=== PATIENT | male | born 1950 | race Caucasian/White ===

== ENCOUNTER 2016-11-29 11:59 | Inpatient (IN) | payer MEDICARE, MEDICAID ==
[~2016-11-29] VITALS: Ht 165.1 cm; Wt 118.7 kg
[~2016-11-29 11:59] MED LIST: ALBU8.5H3 INH; ALBU8.5H5 INH; AMIO200T PO; AMIO200T42 PO; AMLO10TA4 PO; ASPI-496 PO; ASPI-515 PO; ASPI-621 PO; ATOR20TA9 PO; BISA10SU65 PR; CALC0.25 PO; CALC200T3 PO; CALC667C PO; CARV-39 PO; CARV3.122 PO; CARV6.2512 PO; CEFD300C2 PO; CLON0.2T PO; CLON0.2T10 PO; CLOP75TA PO; CLOP75TA22 PO; DOCU-30 PO; DOXY-168 PO; ERGO500017 PO; ERGO80004 PO; FAMO-79 PO; FAMO20TA7 PO; FLUT1DIS3 INH; FLUT1DIS5 IH; FURO-93 PO; FURO80TA77 PO; GABA300C10 PO; GEMF600T3 PO; GLIP5TAB10 PO; HYDR100T25 PO; INSU100C; INSU100C5 SQ-INSULIN; INSU100I11 SC; INSU100I28 SC; INSU100I28 SQ-INSULIN; INSU100I29 SQ; INSU100I29 SQ-INSULIN; INSU100I9 SQ-INSULIN; INSU100V13 SC; INSU100V5 SQ-INSULIN; IRON1TAB60 PO; ISOS20TA58 PO; ISOS30TA PO; LEVE500T53 PO; LISI5TAB7 PO; LORA-446 PO; LORA1TAB PO; LOSA100T6 PO; METF500T PO; OXYC-229 PO; PANT40TA5 PO; PHEN50TA4 PO; POLY17PO5 PO; PREG100C PO; SENN1TAB7 PO; SIMV20TA3 PO; SULF1TAB24 PO; TIOT18CA INH; VITA1CAP PO; ZOLP-413 PO; ZOLP10TA; ZOLP10TA5 PO; cholesterol med; levemir SQ
[2016-11-29] MEDS ORDERED: MECLIZINE CHEWABLE 25 MG TAB ONE (12:28)
[2016-11-29] MEDS ORDERED: SODIUM CHLORIDE FLUSH 10ML SYR IVF ONE (12:30)
[2016-11-29] MEDS ORDERED: MECLIZINE CHEWABLE 25 MG TAB PO ONE (12:30)
[2016-11-29] MEDS ORDERED: GLIP5TAB22 PO (12:33)
[2016-11-29] MEDS ORDERED: FURO20TA3 PO (12:33)
[2016-11-29] MEDS ORDERED: CLON-275 PO (12:33)
[2016-11-29] MEDS ORDERED: ZOLP12.54 PO (12:33)
[2016-11-29] MEDS ORDERED: PANT40TA5 PO (12:33)
[2016-11-29] MEDS ORDERED: INSU100C SQ-INSULIN (12:33)
[2016-11-29] MEDS ORDERED: PREG150C PO (12:33)
[2016-11-29] MEDS ORDERED: ATOR80TA75 PO (12:33)
[2016-11-29] MEDS ORDERED: LORA1TAB PO (12:33)
[2016-11-29] MEDS ORDERED: ISOS20TA58 PO (12:33)
[2016-11-29] MEDS ORDERED: INSU100V13 SQ (12:33)
[2016-11-29] MEDS ORDERED: CARV12.52 PO (12:33)
[2016-11-29 12:40] LABS: HEMOGLOBIN 10.7 g/dL (13.7-18.0)
[2016-11-29 12:47] LABS: ASPARTATE AMINO TRANSFERASE 8 U/L (15-37); BLOOD UREA NITROGEN 53 mg/dL (7-18)
[2016-11-29 12:58] LABS: IS PT STATUS REG ER OR PRE ER? YES
[2016-11-29 14:35] VITALS: BP 156/61
[2016-11-29] MEDS ORDERED: ONDANSETRON 2MG/ML, 2ML IVP PRN (15:00)
[2016-11-29] MEDS ORDERED: LABETALOL 5MG/ML, 20ML IV PRN (15:00)
[2016-11-29] MEDS ORDERED: ACETAMINOPHEN 325 MG TABLET PO PRN (15:00)
[2016-11-29] MEDS ORDERED: MORPHINE SULFATE 4 MG/ML, 1ML IVPush PRN (15:00)
[2016-11-29] MEDS ORDERED: DOCUSATE 100 MG CAPSULE PO PRN (15:00)
[2016-11-29] MEDS ORDERED: POLYETHYLENE GLYCOL 17 GM PACKET PO PRN (15:00)
[2016-11-29] MEDS ORDERED: BISACODYL 10 MG SUPP PR PRN (15:00)
[2016-11-29 15:32] LABS: IS PT STATUS REG ER OR PRE ER? YES
[2016-11-29] MEDS ORDERED: CEFTRIAXONE PMX 1GM/50ML 50 ML ONE (15:33)
[2016-11-29] MEDS: CEFTRIAXONE PMX 1GM/50ML 50 ML IV SCH (15:37)
[2016-11-29] MEDS ORDERED: ALBUTEROL SULFATE 2.5 MG/3 ML NPPB PRN (17:30)
[2016-11-29] MEDS: HEPARIN 5,000 UNITS/ML, 1ML SQ SCH (18:08)
[2016-11-29] MEDS: DOXYCYCLINE 100 MG in DEXTROSE 5% 250 ML IV SCH (18:08)
[2016-11-29] MEDS: INSULIN REGULAR 100 UNITS/ML, 3ML VIAL SQ-INSULIN SCH ×2 (18:15→23:02)
[2016-11-29] MEDS: ISOSORBIDE DINITRATE 20 MG TABLET PO SCH (18:16)
[2016-11-29 21:30] VITALS: BP 174/66
[2016-11-29] MEDS: GUAIFENESIN ER 600 MG TABLET PO SCH (21:40)
[2016-11-29] MEDS: FUROSEMIDE 20 MG TABLET PO SCH (21:41)
[2016-11-29] MEDS: SODIUM CHLORIDE FLUSH 10ML SYR IVF SCH (21:41)
[2016-11-29] MEDS: ATORVASTATIN 80 MG TABLET PO SCH (21:42)
[2016-11-29] MEDS: CALCIUM CARBONATE 500 MG TAB.CHEW PO SCH (21:42)
[2016-11-29 21:46] LABS: IS PT STATUS REG ER OR PRE ER? NO
[2016-11-29] MEDS: INSULIN DETEMIR 100 UNITS/ML, PEN SQ-INSULIN SCH (23:01)
[2016-11-30] MEDS: ISOSORBIDE DINITRATE 20 MG TABLET PO SCH ×5 (00:28→21:00)
[2016-11-30] MEDS ORDERED: ZOLPIDEM 10MG TABLET PO SCH ×2 (01:00→09:00)
[2016-11-30] MEDS: ZOLPIDEM 5MG TABLET PO SCH ×2 (01:23→21:00)
[2016-11-30] MEDS: HEPARIN 5,000 UNITS/ML, 1ML SQ SCH ×3 (01:26→20:59)
[2016-11-30 02:07] VITALS: BP 162/72
[2016-11-30 04:58] LABS: HEMOGLOBIN 10.1 g/dL (13.7-18.0)
[2016-11-30 05:05] LABS: BLOOD UREA NITROGEN 67 mg/dL (7-18)
[2016-11-30] MEDS: DOXYCYCLINE 100 MG in DEXTROSE 5% 250 ML IV SCH (05:22)
[2016-11-30 06:24] LABS: ABG COLLECTION SITE RIGHT BRACHIAL
[2016-11-30 06:25] LABS: COLLATERAL CIRCULATION TESTING NORMAL
[2016-11-30 08:54] VITALS: BP 128/68
[2016-11-30] MEDS: PREGABALIN 150 MG CAPSULE PO SCH (09:24)
[2016-11-30] MEDS: INSULIN DETEMIR 100 UNITS/ML, PEN SQ-INSULIN SCH ×2 (09:24→21:02)
[2016-11-30] MEDS: CARVEDILOL 12.5 MG TABLET PO SCH (09:25)
[2016-11-30] MEDS: SODIUM CHLORIDE FLUSH 10ML SYR IVF SCH (09:25)
[2016-11-30] MEDS: FUROSEMIDE 20 MG TABLET PO SCH ×2 (09:25→21:01)
[2016-11-30] MEDS: INSULIN REGULAR 100 UNITS/ML, 3ML VIAL SQ-INSULIN SCH ×4 (09:25→21:00)
[2016-11-30] MEDS: CALCIUM CARBONATE 500 MG TAB.CHEW PO SCH ×2 (09:25→21:00)
[2016-11-30] MEDS: GUAIFENESIN ER 600 MG TABLET PO SCH ×2 (09:25→20:59)
[2016-11-30] MEDS: LORazepam 1MG TABLET PO SCH (09:25)
[2016-11-30] MEDS: ASPIRIN 81 MG TABLET EC PO SCH (09:25)
[2016-11-30] MEDS: ALBUTEROL/IPRATROPIUM 2.5MG/0.5MG, 3 ML NPPB SCH ×3 (11:00→20:00)
[2016-11-30 13:10] VITALS: BP 158/72
[2016-11-30 20:28] VITALS: BP 138/64
[2016-11-30] MEDS: ATORVASTATIN 80 MG TABLET PO SCH (21:01)
[2016-12-01] MEDS: CEFTRIAXONE PMX 1GM/50ML 50 ML IV SCH (00:36)
[2016-12-01] MEDS: SODIUM CHLORIDE FLUSH 10ML SYR IVF SCH ×3 (00:36→20:27)
[2016-12-01] MEDS: methylPREDNISolone SOD SUCC 125 MG/2 ML IVPush SCH ×2 (00:36→08:11)
[2016-12-01] MEDS: DOXYCYCLINE 100 MG in DEXTROSE 5% 250 ML IV SCH ×3 (01:39→20:27)
[2016-12-01 01:46] VITALS: BP 144/67
[2016-12-01] MEDS: ISOSORBIDE DINITRATE 20 MG TABLET PO SCH ×4 (05:02→20:53)
[2016-12-01] MEDS: HEPARIN 5,000 UNITS/ML, 1ML SQ SCH ×3 (05:02→20:55)
[2016-12-01 05:41] LABS: BLOOD UREA NITROGEN 48 mg/dL (7-18)
[2016-12-01] MEDS: INSULIN REGULAR 100 UNITS/ML, 3ML VIAL SQ-INSULIN SCH ×4 (07:37→20:55)
[2016-12-01] MEDS: ALBUTEROL/IPRATROPIUM 2.5MG/0.5MG, 3 ML NPPB SCH ×4 (08:00→20:21)
[2016-12-01] MEDS: LORazepam 1MG TABLET PO SCH (08:11)
[2016-12-01 08:15] VITALS: BP 148/69
[2016-12-01] MEDS: CALCIUM CARBONATE 500 MG TAB.CHEW PO SCH ×2 (08:24→20:53)
[2016-12-01] MEDS: FUROSEMIDE 20 MG TABLET PO SCH ×2 (08:24→20:53)
[2016-12-01] MEDS: CARVEDILOL 12.5 MG TABLET PO SCH (08:24)
[2016-12-01] MEDS: GUAIFENESIN ER 600 MG TABLET PO SCH ×2 (08:24→20:53)
[2016-12-01] MEDS: PREGABALIN 150 MG CAPSULE PO SCH (08:24)
[2016-12-01] MEDS: ASPIRIN 81 MG TABLET EC PO SCH (08:24)
[2016-12-01] MEDS: INSULIN DETEMIR 100 UNITS/ML, PEN SQ-INSULIN SCH ×2 (08:27→20:54)
[2016-12-01 12:24] LABS: RAPID INFLUENZA A Negative (Negative); RAPID INFLUENZA B Negative (Negative)
[2016-12-01 12:36] VITALS: BP 131/75
[2016-12-01 20:00] VITALS: BP 144/69
[2016-12-01] MEDS: ATORVASTATIN 80 MG TABLET PO SCH (20:53)
[2016-12-02] MEDS: CEFTRIAXONE PMX 1GM/50ML 50 ML IV SCH (00:27)
[2016-12-02 01:40] VITALS: BP 155/70
[2016-12-02] MEDS: HYDROcodone/APAP 5/325 TABLET PO PRN ×2 (05:37→21:19)
[2016-12-02] MEDS: HEPARIN 5,000 UNITS/ML, 1ML SQ SCH ×3 (05:37→21:06)
[2016-12-02] MEDS: ISOSORBIDE DINITRATE 20 MG TABLET PO SCH ×4 (05:40→21:08)
[2016-12-02 06:28] LABS: HEMOGLOBIN 10.3 g/dL (13.7-18.0)
[2016-12-02 06:42] LABS: BLOOD UREA NITROGEN 84 mg/dL (7-18)
[2016-12-02] MEDS: ALBUTEROL/IPRATROPIUM 2.5MG/0.5MG, 3 ML NPPB SCH ×4 (06:50→20:40)
[2016-12-02 08:00] VITALS: BP 189/82
[2016-12-02] MEDS: GUAIFENESIN ER 600 MG TABLET PO SCH ×2 (08:40→21:05)
[2016-12-02] MEDS: CALCIUM CARBONATE 500 MG TAB.CHEW PO SCH ×2 (08:41→21:06)
[2016-12-02] MEDS: LORazepam 1MG TABLET PO SCH (08:41)
[2016-12-02] MEDS: INSULIN DETEMIR 100 UNITS/ML, PEN SQ-INSULIN SCH ×2 (08:41→21:07)
[2016-12-02] MEDS: SODIUM CHLORIDE FLUSH 10ML SYR IVF SCH ×2 (08:42→21:12)
[2016-12-02] MEDS: INSULIN REGULAR 100 UNITS/ML, 3ML VIAL SQ-INSULIN SCH ×4 (08:42→21:07)
[2016-12-02 14:00] VITALS: BP 177/81
[2016-12-02] MEDS: DOXYCYCLINE 100 MG in DEXTROSE 5% 250 ML IV SCH (14:13)
[2016-12-02] MEDS: FUROSEMIDE 20 MG TABLET PO SCH ×2 (14:16→21:06)
[2016-12-02] MEDS: PREGABALIN 150 MG CAPSULE PO SCH (14:16)
[2016-12-02] MEDS: ASPIRIN 81 MG TABLET EC PO SCH (14:17)
[2016-12-02] MEDS: CARVEDILOL 12.5 MG TABLET PO SCH (14:17)
[2016-12-02 19:23] VITALS: BP 162/77
[2016-12-02] MEDS: ATORVASTATIN 80 MG TABLET PO SCH (21:06)
[2016-12-03] MEDS: CEFTRIAXONE PMX 1GM/50ML 50 ML IV SCH (00:20)
[2016-12-03 02:04] VITALS: BP 163/70
[2016-12-03] MEDS: DOXYCYCLINE 100 MG in DEXTROSE 5% 250 ML IV SCH (02:13)
[2016-12-03] MEDS: HEPARIN 5,000 UNITS/ML, 1ML SQ SCH (05:19)
[2016-12-03] MEDS: ISOSORBIDE DINITRATE 20 MG TABLET PO SCH ×2 (05:20→10:29)
[2016-12-03] MEDS: ALBUTEROL/IPRATROPIUM 2.5MG/0.5MG, 3 ML NPPB SCH ×2 (06:52→10:32)
[2016-12-03 07:27] VITALS: BP 158/67
[2016-12-03] MEDS: CALCIUM CARBONATE 500 MG TAB.CHEW PO SCH (08:56)
[2016-12-03] MEDS: GUAIFENESIN ER 600 MG TABLET PO SCH (08:57)
[2016-12-03] MEDS: ASPIRIN 81 MG TABLET EC PO SCH (08:57)
[2016-12-03] MEDS: FUROSEMIDE 20 MG TABLET PO SCH (08:57)
[2016-12-03] MEDS: CARVEDILOL 12.5 MG TABLET PO SCH (08:57)
[2016-12-03] MEDS: PREGABALIN 150 MG CAPSULE PO SCH (08:57)
[2016-12-03] MEDS: INSULIN DETEMIR 100 UNITS/ML, PEN SQ-INSULIN SCH (08:57)
[2016-12-03] MEDS: SODIUM CHLORIDE FLUSH 10ML SYR IVF SCH (08:58)
[2016-12-03] MEDS: LORazepam 1MG TABLET PO SCH (08:58)
[2016-12-03] MEDS: INSULIN REGULAR 100 UNITS/ML, 3ML VIAL SQ-INSULIN SCH ×2 (08:58→12:19)
[2016-12-03] MEDS ORDERED: GUAI600T22 PO (10:53)
[2016-12-03] MEDS ORDERED: PRED20TA PO (10:53)
[2016-12-03] MEDS ORDERED: DOXY100T PO (10:53)
[2016-12-03] MEDS ORDERED: CEFD300C2 PO (10:53)
== END 2016-12-03 13:49 | disposition home health service (06) | DRG 871 ==
LOC: MERGE 11:59 → ED 14:57 → EDIP 15:00 → OBSVTOIN 15:00 → 4EST 16:24 → DCLOUNGE 12-03 12:50
PROVIDERS: ADMIT Internal Medicine; ATTEND Family Medicine
PROC: 5A1D60Z (ICD-10-PCS; principal; 2016-12-02)
DX: A41.9 Sepsis, unspecified organism (principal); N18.6 End stage renal disease; J44.0 Chronic obstructive pulmonary disease with (acute) lower respiratory infection; I13.2 Hypertensive heart and chronic kidney disease with heart failure and with stage 5 chronic kidney disease, or end stage renal disease; I50.32 Chronic diastolic (congestive) heart failure; E87.1 Hypo-osmolality and hyponatremia; J44.1 Chronic obstructive pulmonary disease with (acute) exacerbation; J20.9 Acute bronchitis, unspecified; E78.5 Hyperlipidemia, unspecified; I25.10 Atherosclerotic heart disease of native coronary artery without angina pectoris; E11.22 Type 2 diabetes mellitus with diabetic chronic kidney disease; E11.21 Type 2 diabetes mellitus with diabetic nephropathy; E11.65 Type 2 diabetes mellitus with hyperglycemia; F17.200 Nicotine dependence, unspecified, uncomplicated; D64.9 Anemia, unspecified; D63.1 Anemia in chronic kidney disease; Z99.2 Dependence on renal dialysis; Z95.5 Presence of coronary angioplasty implant and graft; Z90.49 Acquired absence of other specified parts of digestive tract; Z83.3 Family history of diabetes mellitus; Z86.718 Personal history of other venous thrombosis and embolism; Z82.3 Family history of stroke; Z82.5 Family history of asthma and other chronic lower respiratory diseases; Z79.4 Long term (current) use of insulin; Z86.73 Personal history of transient ischemic attack (TIA), and cerebral infarction without residual deficits
CPT/HCPCS: 36415; 36600; 70450; 71010; 80048; 80053; 80061; 82140; 82803; 82962; 83605; 84484; 85025; 85610; 85730; 87040; 87400; 93005; 93306; 94640; 96365; J0696; J1644; J1815; J7060; J7620; J2930; J7512

== ENCOUNTER 2017-01-22 14:30 | Observation (INO) | payer MEDICARE, MEDICAID ==
[~2017-01-22] VITALS: Ht 165.1 cm; Wt 112.2 kg
[~2017-01-22 14:30] MED LIST changes: +ATOR80TA75 PO; +CARV12.52 PO; -CEFD300C2 PO; +CEFD300C37 PO; +CLON-275 PO; +DOXY100T PO; +FURO20TA3 PO; +GLIP5TAB22 PO; +GUAI600T22 PO; +INSU100C SQ-INSULIN; +INSU100V13 SQ; +PRED20TA PO; +PREG150C PO; +ZOLP12.54 PO
[2017-01-22 15:48] LABS: BLOOD UREA NITROGEN 62 mg/dL (7-18)
[2017-01-22 15:55] LABS: ASPARTATE AMINO TRANSFERASE 16 U/L (15-37)
[2017-01-22 15:58] LABS: IS PT STATUS REG ER OR PRE ER? YES
[2017-01-22] MEDS ORDERED: CEFTRIAXONE PMX 1GM/50ML 50 ML IVPB ONE (17:00)
[2017-01-22] MEDS ORDERED: LORazepam 1MG TABLET PO PRN (17:30)
[2017-01-22] MEDS ORDERED: MORPHINE SULFATE 4 MG/ML, 1ML IVPush PRN (17:30)
[2017-01-22] MEDS ORDERED: ACETAMINOPHEN 325 MG TABLET PO PRN (17:30)
[2017-01-22] MEDS ORDERED: ONDANSETRON 2MG/ML, 2ML IVP PRN (17:30)
[2017-01-22] MEDS ORDERED: POLYETHYLENE GLYCOL 17 GM PACKET PO PRN (17:30)
[2017-01-22] MEDS ORDERED: OXYcodone/APAP 10/325MG TABLET PO SCH (17:30)
[2017-01-22] MEDS ORDERED: DOCUSATE 100 MG CAPSULE PO PRN (17:30)
[2017-01-22] MEDS ORDERED: BISACODYL 10 MG SUPP PR PRN (17:30)
[2017-01-22] MEDS ORDERED: LABETALOL 5MG/ML, 20ML IV PRN (17:30)
[2017-01-22] MEDS: CLONIDINE MC SCH (18:00)
[2017-01-22 18:37] VITALS: BP 150/69
[2017-01-22] MEDS ORDERED: ATORVASTATIN 80 MG TABLET PO SCH (21:00)
[2017-01-22] MEDS: SODIUM CHLORIDE FLUSH 10ML SYR IVF SCH (21:16)
[2017-01-22] MEDS: HEPARIN 5,000 UNITS/ML, 1ML SQ SCH (21:16)
[2017-01-22] MEDS: GUAIFENESIN ER 600 MG TABLET PO SCH (21:17)
[2017-01-22] MEDS: CALCIUM CARBONATE 500 MG TAB.CHEW PO SCH (21:17)
[2017-01-22] MEDS: PREGABALIN 100 MG CAPSULE PO SCH (21:17)
[2017-01-22] MEDS: INSULIN DETEMIR 100 UNITS/ML, PEN SQ-INSULIN SCH (21:40)
[2017-01-22] MEDS: INSULIN REGULAR 100 UNITS/ML, 3ML VIAL SQ-INSULIN SCH (21:40)
[2017-01-22] MEDS: AZITHROMYCIN 500 MG in SODIUM CHLORIDE 0.9% 250 ML IV SCH (22:45)
[2017-01-22 22:50] VITALS: BP 150/69
[2017-01-22] MEDS ORDERED: OXYcodone/APAP 10/325MG TABLET PO PRN (23:30)
[2017-01-23] MEDS: CLONIDINE MC SCH ×3 (02:00→17:02)
[2017-01-23 03:20] VITALS: BP 148/75
[2017-01-23 06:04] LABS: BLOOD UREA NITROGEN 62 mg/dL (7-18)
[2017-01-23] MEDS: HEPARIN 5,000 UNITS/ML, 1ML SQ SCH ×2 (06:06→13:14)
[2017-01-23 06:50] VITALS: BP 141/66
[2017-01-23] MEDS: INSULIN REGULAR 100 UNITS/ML, 3ML VIAL SQ-INSULIN SCH ×3 (07:00→17:00)
[2017-01-23] MEDS: GUAIFENESIN ER 600 MG TABLET PO SCH (08:20)
[2017-01-23] MEDS: CALCIUM CARBONATE 500 MG TAB.CHEW PO SCH (08:20)
[2017-01-23] MEDS: PREGABALIN 100 MG CAPSULE PO SCH (08:20)
[2017-01-23] MEDS: SODIUM CHLORIDE FLUSH 10ML SYR IVF SCH (08:20)
[2017-01-23] MEDS: INSULIN DETEMIR 100 UNITS/ML, PEN SQ-INSULIN SCH (08:21)
[2017-01-23] MEDS ORDERED: FUROSEMIDE 20 MG TABLET PO SCH (09:00)
[2017-01-23] MEDS ORDERED: CARVEDILOL 12.5 MG TABLET PO SCH (09:00)
[2017-01-23] MEDS ORDERED: ISOSORBIDE MONONITRATE ER 30 MG TABLET PO SCH (09:00)
[2017-01-23] MEDS ORDERED: ZOLPIDEM 10MG TABLET PO SCH (09:00)
[2017-01-23] MEDS ORDERED: ASPIRIN 81 MG TABLET EC PO SCH (09:00)
[2017-01-23] MEDS ORDERED: ALBU18HF INH (13:52)
[2017-01-23] MEDS ORDERED: GUAI600T22 PO (13:52)
[2017-01-23] MEDS ORDERED: AZIT250T PO (13:55)
[2017-01-23 15:45] VITALS: BP 143/70
[2017-01-23] MEDS: AZITHROMYCIN 500 MG in SODIUM CHLORIDE 0.9% 250 ML IV SCH (17:01)
[2017-01-23 18:33] VITALS: BP 158/66
== END 2017-01-23 19:20 | disposition home or self-care (01) ==
LOC: ED 16:55 → EDIP 16:56 → INTOOBSV 16:56 → ED 17:08 → 4NOR 18:33 → UNDODISIN 01-23 19:20
PROVIDERS: ADMIT Hospitalist; ATTEND Hospitalist
DX: J20.9 Acute bronchitis, unspecified (principal); I13.2 Hypertensive heart and chronic kidney disease with heart failure and with stage 5 chronic kidney disease, or end stage renal disease; N18.6 End stage renal disease; E11.22 Type 2 diabetes mellitus with diabetic chronic kidney disease; E11.21 Type 2 diabetes mellitus with diabetic nephropathy; E11.65 Type 2 diabetes mellitus with hyperglycemia; E78.5 Hyperlipidemia, unspecified; E11.40 Type 2 diabetes mellitus with diabetic neuropathy, unspecified; D63.8 Anemia in other chronic diseases classified elsewhere; J44.1 Chronic obstructive pulmonary disease with (acute) exacerbation; I50.32 Chronic diastolic (congestive) heart failure; I25.10 Atherosclerotic heart disease of native coronary artery without angina pectoris; E44.0 Moderate protein-calorie malnutrition; Z86.73 Personal history of transient ischemic attack (TIA), and cerebral infarction without residual deficits; Z99.2 Dependence on renal dialysis; Z87.891 Personal history of nicotine dependence; Z95.5 Presence of coronary angioplasty implant and graft; Z96.641 Presence of right artificial hip joint; Z82.5 Family history of asthma and other chronic lower respiratory diseases; Z82.3 Family history of stroke; Z83.3 Family history of diabetes mellitus
CPT/HCPCS: 36415; 71020; 80048; 80053; 82962; 83605; 84145; 84484; 85025; 87040; 87070; 87205; 93005; 96365; 96367; 96372; 96375; 99285; G0378; J0456; J0696; J1644; J1815; J7050

== ENCOUNTER 2017-11-03 00:58 | Emergency (ER) | payer MEDICARE, MEDICAID ==
[~2017-11-03] VITALS: Ht 165.1 cm; Wt 116.8 kg
[~2017-11-03 00:58] MED LIST changes: +ALBU18HF INH; -ALBU8.5H3 INH; +ALBU8.5H8 INH; +ATOR-2 PO; -ATOR80TA75 PO; +AZIT250T PO; -CLOP75TA22 PO; +CLOP75TA52 PO; +DOCU-131 PO; -DOCU-30 PO; -DOXY-168 PO; +DOXY100C2 PO; +DOXY100T10 PO; +FENO48TA16 PO; +FURO40TA6 PO; +GLIP-164 PO; -GUAI600T22 PO; +GUAI600T31 PO; +INSU100I28 SQ; +INSU200I SQ; +ISOS30TA8 PO; -OXYC-229 PO; +OXYC-307 PO; +SEVE800T8 PO
[2017-11-03 01:09] VITALS: BP 211/84
== END 2017-11-03 02:04 | disposition home or self-care (01) ==
LOC: ED 01:31
DX: K04.7 Periapical abscess without sinus (principal); I10 Essential (primary) hypertension; J44.9 Chronic obstructive pulmonary disease, unspecified; E78.5 Hyperlipidemia, unspecified; E11.9 Type 2 diabetes mellitus without complications; Z90.49 Acquired absence of other specified parts of digestive tract; Z88.8 Allergy status to other drugs, medicaments and biological substances; Z91.013 Allergy to seafood
CPT/HCPCS: 99283

== ENCOUNTER 2018-11-26 08:49 | Emergency (ER) | payer MEDICARE, MEDICAID ==
[~2018-11-26] VITALS: Ht 165.1 cm; Wt 109.0 kg
[~2018-11-26 08:49] MED LIST changes: -ASPI-621 PO; +ASPI81TA45 PO; +ATOR20TA37 PO; -ATOR20TA9 PO; -GEMF600T3 PO; +GEMF600T8 PO; -GLIP-164 PO; +GLIP10TA24 PO; +LOSA100T14 PO; -LOSA100T6 PO; +SENN-177 PO; -SENN1TAB7 PO
--- NOTE | 2018-11-26 08:49 | NUR ---
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
[2018-11-26 09:29] LABS: BASOPHILS # (AUTO) 0.04 x10^3/uL (0-0.1); BASOPHILS % (AUTO) 1 % (0-1); EOSINOPHILS # (AUTO) 0.25 x10^3/uL (0-0.4); EOSINOPHILS % (AUTO) 4 % (1-7); LYMPHOCYTES # (AUTO) 0.89 x10^3/uL (1-3.4); LYMPHOCYTES % (AUTO) 13 % (22-44); MD NO; MEAN CORPUSCULAR HEMOGLOBIN 28.4 pg (27.5-34.5); MEAN CORPUSCULAR HGB CONC 32.6 g/dL (33.2-36.2); MEAN CORPUSCULAR VOLUME 87.1 fL (81-97); MEAN PLATELET VOLUME 9.8 fL (7.4-10.4); MONOCYTES # (AUTO) 0.74 x10^3/uL (0.2-0.8); MONOCYTES % (AUTO) 11 % (2-9); NEUTROPHILS # (AUTO) 5.04 x10^3/uL (1.8-6.8); NEUTROPHILS % (AUTO) 72 % (42-75); PLATELET COUNT 171 x10^3/uL (130-400); RED BLOOD COUNT 3.83 x10^6/uL (4.38-5.82); RED CELL DISTRIBUTION WIDTH 15.2 % (9.4-14.8)
[2018-11-26 09:39] LABS: ALBUMIN 3.1 g/dL (3.4-5.0); ANION GAP 5 mmol/L (5-15); CALCIUM 8.3 mg/dL (8.5-10.1); CHLORIDE 106 mmol/L (98-107); CREATININE 3.74 mg/dL (0.7-1.3)
--- NOTE | 2018-11-26 10:02 | NUR ---
report from Shanelle land, pt care assumed at this time. pt in restroom attempting to get UA, breakfast tray delivered
--- NOTE | 2018-11-26 10:02 | NUR ---
report given to Angelica
--- NOTE | 2018-11-26 10:31 | NUR ---
Pt unable to provide UA at this time, given water. MD Ellsworth at bedside to discuss POC.
[2018-11-26 11:47] VITALS: BP 110/40
== END 2018-11-26 11:50 | disposition home or self-care (01) ==
LOC: ED 11:12
DX: J96.11 Chronic respiratory failure with hypoxia (principal); J15.9 Unspecified bacterial pneumonia; I95.89 Other hypotension; J44.9 Chronic obstructive pulmonary disease, unspecified; I10 Essential (primary) hypertension; E11.9 Type 2 diabetes mellitus without complications; E78.5 Hyperlipidemia, unspecified; Z90.49 Acquired absence of other specified parts of digestive tract; Z87.891 Personal history of nicotine dependence
CPT/HCPCS: 36415; 71045; 80048; 82040; 85025; 93005; 99284

== ENCOUNTER 2018-12-04 23:20 | Inpatient (IN) | payer MEDICARE, MEDICAID ==
[~2018-12-04] VITALS: Ht 165.1 cm; Wt 110.0 kg
--- NOTE | 2018-12-04 23:44 | NUR ---
BIB [facility] FOR GENERALIZED WEAKNESS, DX WITH R SIDED PNA LAST WEEK. INITIALLY LOST DOXYCYCLINE, BUT FOUND AND STARTED 3 DAYS AGO, ABLE TO TRANSFER [facility] STRETCHER TO ER STRETCHER WITH ASSISTANCE. PLACED ON RADIATION ONCOLOGIST AND O2, LAB AND XRAY AT BEDSIDE, CALL LIGHT IN REACH
[2018-12-04 23:56] LABS: BASOPHILS # (AUTO) 0.01 x10^3/uL (0-0.1); BASOPHILS % (AUTO) 0 % (0-1); EOSINOPHILS # (AUTO) 0.14 x10^3/uL (0-0.4); EOSINOPHILS % (AUTO) 2 % (1-7); LYMPHOCYTES # (AUTO) 0.75 x10^3/uL (1-3.4); LYMPHOCYTES % (AUTO) 8 % (22-44); MD NO; MEAN CORPUSCULAR HGB CONC 33.4 g/dL (33.2-36.2); MEAN CORPUSCULAR VOLUME 86.9 fL (81-97); MEAN PLATELET VOLUME 9.3 fL (7.4-10.4); MONOCYTES # (AUTO) 0.64 x10^3/uL (0.2-0.8); MONOCYTES % (AUTO) 7 % (2-9); NEUTROPHILS # (AUTO) 7.64 x10^3/uL (1.8-6.8); NEUTROPHILS % (AUTO) 83 % (42-75); PLATELET COUNT 155 x10^3/uL (130-400); RED BLOOD COUNT 4.06 x10^6/uL (4.38-5.82); RED CELL DISTRIBUTION WIDTH 15.3 % (9.4-14.8)
[2018-12-05] MEDS ORDERED: SODIUM CHLORIDE FLUSH 10ML SYR IVF ONE
[2018-12-05] MEDS ORDERED: ACETAMINOPHEN 325 MG TABLET PO ONE
[2018-12-05] MEDS ORDERED: ACETAMINOPHEN 325 MG TABLET ONE (00:04)
[2018-12-05 00:09] LABS: ALANINE AMINOTRANSFERASE 17 U/L (12-78); ALBUMIN 3.6 g/dL (3.4-5.0); ANION GAP 6 mmol/L (5-15); CALCIUM 8.9 mg/dL (8.5-10.1); CHLORIDE 100 mmol/L (98-107); CREATININE 4.85 mg/dL (0.7-1.3)
[2018-12-05 00:14] LABS: ALKALINE PHOSPHATASE 117 U/L (45-117); BILIRUBIN,TOTAL 0.4 mg/dL (0.2-1.0); TOTAL PROTEIN 7.7 g/dL (6.4-8.2); TROPONIN I < 0.015 ng/mL (0.000-0.045)
[2018-12-05] MEDS ORDERED: ALBUTEROL SULFATE 2.5 MG/3 ML ONE (00:26)
[2018-12-05] MEDS ORDERED: ALBUTEROL SULFATE 2.5 MG/3 ML NPPB PRN (00:30)
--- NOTE | 2018-12-05 00:30 | NUR ---
PT ABLE TO URINATE, SPECIMIN COLLECTED AND SENT TO LAB
[2018-12-05 00:43] LABS: CULTURE INDICATED? NO; MICROSCOPIC AUTO
[2018-12-05] MEDS ORDERED: VANCOMYCIN 2,000 MG in SODIUM CHLORIDE 0.9% 500 ML IV ONE (01:00)
[2018-12-05] MEDS ORDERED: AZITHROMYCIN 500 MG in SODIUM CHLORIDE 0.9% 250 ML IV ONE (01:00)
[2018-12-05] MEDS ORDERED: CEFTRIAXONE PMX 1GM/50ML 50 ML IV ONE (01:00)
[2018-12-05] MEDS ORDERED: VANCOMYCIN PER PHARMACY MC PRN (01:00)
[2018-12-05] MEDS ORDERED: CEFTRIAXONE PMX 1GM/50ML 50 ML ONE (01:10)
[2018-12-05] MEDS ORDERED: ACETAMINOPHEN 325 MG TABLET PO PRN (01:30)
[2018-12-05] MEDS ORDERED: hydrALAzine 20 MG/ML, 1ML IVPush PRN (01:30)
[2018-12-05] MEDS ORDERED: HEPARIN 5,000 UNITS/ML, 1ML ONE (01:39)
[2018-12-05] MEDS: HEPARIN 5,000 UNITS/ML, 1ML SQ SCH ×3 (01:43→16:54)
--- NOTE | 2018-12-05 01:48 | NUR ---
REPORT GIVEN TO GALINA HERNANDEZ
[2018-12-05] MEDS ORDERED: LORazepam 1MG TABLET PO PRN (02:00)
[2018-12-05 02:29] VITALS: BP 133/69
[2018-12-05] MEDS: CEFTRIAXONE PMX 2GM/50ML 50 ML IV SCH (02:30)
[2018-12-05 06:52] VITALS: BP 147/73
[2018-12-05] MEDS: PREGABALIN 100 MG CAPSULE PO SCH ×3 (08:57→20:32)
[2018-12-05] MEDS: FUROSEMIDE 40 MG TABLET PO SCH (08:57)
[2018-12-05] MEDS: ASPIRIN 81 MG TABLET EC PO SCH (08:58)
[2018-12-05] MEDS: INSULIN LISPRO 100 UNITS/ML, PEN SQ-INSULIN SCH ×4 (08:58→20:33)
[2018-12-05] MEDS: INSULIN GLARGINE 100 UNITS/ML, PEN SQ-INSULIN SCH ×2 (08:58→20:33)
[2018-12-05] MEDS ORDERED: CARVEDILOL 12.5 MG TABLET PO SCH (09:00)
[2018-12-05] MEDS ORDERED: DOXYCYCLINE 100MG CAP PO SCH (09:00)
[2018-12-05] MEDS ORDERED: ALBUTEROL/IPRATROPIUM 2.5MG/0.5MG, 3 ML ONE (10:17)
[2018-12-05] MEDS ORDERED: ALBUTEROL/IPRATROPIUM 2.5MG/0.5MG, 3 ML NPPB PRN (10:30)
[2018-12-05] MEDS ORDERED: ALBUTEROL/IPRATROPIUM 2.5MG/0.5MG, 3 ML NPPB SCH ×2 (11:00→20:00)
[2018-12-05 13:01] LABS: HEMOGLOBIN A1C 9.6 % (4.2-6.3)
[2018-12-05] MEDS: DOXYCYCLINE 100 MG in DEXTROSE 5% 250 ML IV SCH (15:17)
[2018-12-05 15:57] LABS: RAPID INFLUENZA A POSITIVE (Negative)
[2018-12-05 15:58] LABS: RAPID INFLUENZA B Negative (Negative)
[2018-12-05] MEDS ORDERED: ONDANSETRON 2MG/ML, 2ML IVPush PRN (16:30)
[2018-12-05] MEDS: OSELTAMIVIR 75 MG CAPSULE PO SCH (20:32)
[2018-12-05] MEDS: ATORVASTATIN 20 MG TABLET PO SCH (20:32)
[2018-12-05] MEDS ORDERED: INSULIN GLARGINE 100 UNITS/ML, PEN SQ-INSULIN SCH (21:00)
[2018-12-05 21:12] VITALS: BP 168/70
[2018-12-06] MEDS: HEPARIN 5,000 UNITS/ML, 1ML SQ SCH ×3 (01:37→17:58)
[2018-12-06] MEDS: CEFTRIAXONE PMX 2GM/50ML 50 ML IV SCH (01:37)
[2018-12-06 01:48] VITALS: BP 157/69
[2018-12-06] MEDS: DOXYCYCLINE 100 MG in DEXTROSE 5% 250 ML IV SCH ×2 (03:17→15:21)
[2018-12-06 05:13] LABS: BASOPHILS % (AUTO) 0 % (0-1); EOSINOPHILS # (AUTO) 0.03 x10^3/uL (0-0.4); EOSINOPHILS % (AUTO) 0 % (1-7); LYMPHOCYTES # (AUTO) 0.78 x10^3/uL (1-3.4); LYMPHOCYTES % (AUTO) 8 % (22-44); MD NO; MEAN CORPUSCULAR HEMOGLOBIN 28.7 pg (27.5-34.5); MEAN CORPUSCULAR VOLUME 87.2 fL (81-97); MEAN PLATELET VOLUME 9.5 fL (7.4-10.4); MONOCYTES # (AUTO) 0.79 x10^3/uL (0.2-0.8); MONOCYTES % (AUTO) 8 % (2-9); NEUTROPHILS # (AUTO) 8.18 x10^3/uL (1.8-6.8); NEUTROPHILS % (AUTO) 84 % (42-75); PLATELET COUNT 154 x10^3/uL (130-400); RED BLOOD COUNT 4.15 x10^6/uL (4.38-5.82); RED CELL DISTRIBUTION WIDTH 14.8 % (9.4-14.8)
[2018-12-06 05:20] LABS: CALCIUM 8.9 mg/dL (8.5-10.1); CHLORIDE 97 mmol/L (98-107)
[2018-12-06 05:24] LABS: ALBUMIN 3.4 g/dL (3.4-5.0); ANION GAP 7 mmol/L (5-15); CREATININE 4.22 mg/dL (0.7-1.3)
[2018-12-06] MEDS ORDERED: ALBUTEROL/IPRATROPIUM 2.5MG/0.5MG, 3 ML NPPB PRN (06:30)
[2018-12-06 06:53] VITALS: BP 134/68
[2018-12-06] MEDS: INSULIN LISPRO 100 UNITS/ML, PEN SQ-INSULIN SCH ×4 (08:12→20:36)
[2018-12-06] MEDS: PREGABALIN 100 MG CAPSULE PO SCH ×3 (08:13→20:24)
[2018-12-06] MEDS: FUROSEMIDE 40 MG TABLET PO SCH (08:13)
[2018-12-06] MEDS: OSELTAMIVIR 75 MG CAPSULE PO SCH ×2 (08:13→20:24)
[2018-12-06] MEDS: INSULIN GLARGINE 100 UNITS/ML, PEN SQ-INSULIN SCH (08:13)
[2018-12-06] MEDS: ASPIRIN 81 MG TABLET EC PO SCH (08:14)
[2018-12-06] MEDS: CARVEDILOL 12.5 MG TABLET PO SCH ×2 (08:14→20:24)
[2018-12-06] MEDS ORDERED: MAGNESIUM CITRATE 300ML ORAL SOL PO ONE ×2 (09:00→21:00)
[2018-12-06 13:58] VITALS: BP 129/63
[2018-12-06 19:39] VITALS: BP 132/51
[2018-12-06] MEDS: ATORVASTATIN 20 MG TABLET PO SCH (20:24)
[2018-12-06] MEDS ORDERED: INSULIN GLARGINE 100 UNITS/ML, PEN SQ-INSULIN SCH (21:00)
[2018-12-07 01:45] VITALS: BP 137/64
[2018-12-07] MEDS: HEPARIN 5,000 UNITS/ML, 1ML SQ SCH ×3 (02:08→16:47)
[2018-12-07] MEDS: CEFTRIAXONE PMX 2GM/50ML 50 ML IV SCH (02:08)
[2018-12-07] MEDS: DOXYCYCLINE 100 MG in DEXTROSE 5% 250 ML IV SCH (03:33)
[2018-12-07 05:35] LABS: BASOPHILS # (AUTO) 0.02 x10^3/uL (0-0.1); BASOPHILS % (AUTO) 0 % (0-1); EOSINOPHILS # (AUTO) 0.15 x10^3/uL (0-0.4); EOSINOPHILS % (AUTO) 2 % (1-7); LYMPHOCYTES # (AUTO) 0.67 x10^3/uL (1-3.4); LYMPHOCYTES % (AUTO) 11 % (22-44); MD NO; MEAN CORPUSCULAR HEMOGLOBIN 29.2 pg (27.5-34.5); MEAN CORPUSCULAR HGB CONC 33.5 g/dL (33.2-36.2); MEAN CORPUSCULAR VOLUME 87.1 fL (81-97); MEAN PLATELET VOLUME 9.5 fL (7.4-10.4); MONOCYTES # (AUTO) 0.71 x10^3/uL (0.2-0.8); MONOCYTES % (AUTO) 11 % (2-9); NEUTROPHILS # (AUTO) 4.69 x10^3/uL (1.8-6.8); NEUTROPHILS % (AUTO) 75 % (42-75); PLATELET COUNT 133 x10^3/uL (130-400); RED CELL DISTRIBUTION WIDTH 15.1 % (9.4-14.8)
[2018-12-07 05:42] LABS: ANION GAP 9 mmol/L (5-15); CALCIUM 8.8 mg/dL (8.5-10.1); CHLORIDE 96 mmol/L (98-107)
[2018-12-07 05:47] LABS: ALANINE AMINOTRANSFERASE 14 U/L (12-78); ALKALINE PHOSPHATASE 95 U/L (45-117); BILIRUBIN,TOTAL 0.4 mg/dL (0.2-1.0); CREATININE 6.31 mg/dL (0.7-1.3); TOTAL PROTEIN 7.3 g/dL (6.4-8.2)
[2018-12-07 07:59] VITALS: BP 140/62
[2018-12-07] MEDS: INSULIN LISPRO 100 UNITS/ML, PEN SQ-INSULIN SCH ×4 (08:52→21:00)
[2018-12-07] MEDS ORDERED: INSULIN GLARGINE 100 UNITS/ML, PEN SQ-INSULIN SCH ×2 (09:00→21:00)
[2018-12-07] MEDS ORDERED: MAGNESIUM CITRATE 300ML ORAL SOL PO ONE (09:00)
[2018-12-07] MEDS: AMOXICILLIN/CLAV 875-125MG TABLET PO SCH ×2 (11:27→20:49)
[2018-12-07] MEDS: ASPIRIN 81 MG TABLET EC PO SCH (11:27)
[2018-12-07] MEDS: OSELTAMIVIR 75 MG CAPSULE PO SCH (11:27)
[2018-12-07] MEDS: PREGABALIN 100 MG CAPSULE PO SCH ×3 (11:27→20:49)
[2018-12-07] MEDS: DOCUSATE 100 MG CAPSULE PO SCH ×2 (11:27→20:50)
[2018-12-07] MEDS: FUROSEMIDE 40 MG TABLET PO SCH (11:27)
[2018-12-07] MEDS: CARVEDILOL 12.5 MG TABLET PO SCH ×2 (11:27→20:50)
[2018-12-07] MEDS: DOXYCYCLINE 100MG TABLET PO SCH ×2 (11:28→20:50)
[2018-12-07 12:06] VITALS: BP 121/47
[2018-12-07] MEDS ORDERED: OSELTAMIVIR 30 MG CAPSULE PO SCH (18:00)
[2018-12-07 19:53] VITALS: BP 151/62
[2018-12-07] MEDS: ATORVASTATIN 20 MG TABLET PO SCH (20:49)
[2018-12-07] MEDS ORDERED: MAGNESIUM HYDROXIDE 8%, 30ML UDC PO SCH (21:00)
[2018-12-07] MEDS ORDERED: INSULIN LISPRO 100 UNITS/ML, PEN SQ-INSULIN SCH (21:00)
[2018-12-08 02:52] VITALS: BP 137/63
[2018-12-08] MEDS: HEPARIN 5,000 UNITS/ML, 1ML SQ SCH ×2 (03:11→09:25)
[2018-12-08 05:47] LABS: BASOPHILS # (AUTO) 0.01 x10^3/uL (0-0.1); BASOPHILS % (AUTO) 0 % (0-1); EOSINOPHILS # (AUTO) 0.12 x10^3/uL (0-0.4); EOSINOPHILS % (AUTO) 2 % (1-7); LYMPHOCYTES # (AUTO) 0.79 x10^3/uL (1-3.4); LYMPHOCYTES % (AUTO) 12 % (22-44); MD NO; MEAN CORPUSCULAR HEMOGLOBIN 29.2 pg (27.5-34.5); MEAN CORPUSCULAR HGB CONC 33.4 g/dL (33.2-36.2); MEAN CORPUSCULAR VOLUME 87.6 fL (81-97); MONOCYTES % (AUTO) 11 % (2-9); NEUTROPHILS # (AUTO) 4.81 x10^3/uL (1.8-6.8); NEUTROPHILS % (AUTO) 75 % (42-75); PLATELET COUNT 143 x10^3/uL (130-400); RED CELL DISTRIBUTION WIDTH 15.4 % (9.4-14.8)
[2018-12-08 05:59] LABS: ALBUMIN 2.9 g/dL (3.4-5.0); ANION GAP 6 mmol/L (5-15); CALCIUM 8.5 mg/dL (8.5-10.1); CHLORIDE 100 mmol/L (98-107)
[2018-12-08 06:04] LABS: ALANINE AMINOTRANSFERASE 22 U/L (12-78); ALKALINE PHOSPHATASE 90 U/L (45-117); BILIRUBIN,TOTAL 0.4 mg/dL (0.2-1.0); TOTAL PROTEIN 7.1 g/dL (6.4-8.2)
[2018-12-08] MEDS: INSULIN LISPRO 100 UNITS/ML, PEN SQ-INSULIN SCH ×2 (07:57→11:36)
[2018-12-08 08:01] VITALS: BP 167/68
[2018-12-08] MEDS ORDERED: INSULIN GLARGINE 100 UNITS/ML, PEN SQ-INSULIN SCH (09:00)
[2018-12-08] MEDS: FUROSEMIDE 40 MG TABLET PO SCH (09:25)
[2018-12-08] MEDS: DOXYCYCLINE 100MG TABLET PO SCH (09:25)
[2018-12-08] MEDS: CARVEDILOL 12.5 MG TABLET PO SCH (09:25)
[2018-12-08] MEDS: PREGABALIN 100 MG CAPSULE PO SCH (09:25)
[2018-12-08] MEDS: AMOXICILLIN/CLAV 875-125MG TABLET PO SCH (09:25)
[2018-12-08] MEDS: DOCUSATE 100 MG CAPSULE PO SCH (09:25)
[2018-12-08] MEDS: ASPIRIN 81 MG TABLET EC PO SCH (09:25)
[2018-12-08] MEDS ORDERED: MESALAMINE ENEMA 4 GM/60 ML ENEMA PR ONE (09:30)
[2018-12-08] MEDS ORDERED: OSEL30CA PO (10:37)
[2018-12-08] MEDS ORDERED: INSU100I13 SQ-INSULIN (10:37)
[2018-12-08] MEDS ORDERED: TIOT18CA INH (10:37)
[2018-12-08] MEDS ORDERED: AMOX1TAB12 PO (10:37)
[2018-12-08] MEDS ORDERED: INSU100I11 SQ-INSULIN (10:37)
[2018-12-08] MEDS ORDERED: DOXY100T PO (10:37)
[2018-12-08] MEDS ORDERED: OSELTAMIVIR 30 MG CAPSULE PO PRN (18:00)
[2018-12-08] MEDS ORDERED: MESALAMINE ENEMA 4 GM/60 ML ENEMA PR SCH (21:00)
== END 2018-12-08 16:03 | DRG 193 ==
LOC: ED 12-05 00:35 → EDIP 12-05 01:06 → 4WST 12-05 01:58
PROVIDERS: ADMIT Family Medicine; ATTEND Family Medicine
PROC: 5A1D70Z Performance of Urinary Filtration, Intermittent, Less than 6 Hours Per Day (ICD-10-PCS; principal; 2018-12-05)
PROC: 5A1D70Z Performance of Urinary Filtration, Intermittent, Less than 6 Hours Per Day (ICD-10-PCS; 2018-12-07)
DX: J10.08 Influenza due to other identified influenza virus with other specified pneumonia (principal); N18.6 End stage renal disease; J96.21 Acute and chronic respiratory failure with hypoxia; E87.1 Hypo-osmolality and hyponatremia; I12.0 Hypertensive chronic kidney disease with stage 5 chronic kidney disease or end stage renal disease; Z68.41 Body mass index [BMI] 40.0-44.9, adult; J18.8 Other pneumonia, unspecified organism; J44.0 Chronic obstructive pulmonary disease with (acute) lower respiratory infection; J44.1 Chronic obstructive pulmonary disease with (acute) exacerbation; D63.1 Anemia in chronic kidney disease; E11.21 Type 2 diabetes mellitus with diabetic nephropathy; E11.22 Type 2 diabetes mellitus with diabetic chronic kidney disease; E11.40 Type 2 diabetes mellitus with diabetic neuropathy, unspecified; E78.5 Hyperlipidemia, unspecified; E87.70 Fluid overload, unspecified; E87.8 Other disorders of electrolyte and fluid balance, not elsewhere classified; I48.91 Unspecified atrial fibrillation; E66.01 Morbid (severe) obesity due to excess calories; K59.00 Constipation, unspecified; N25.0 Renal osteodystrophy; Z99.2 Dependence on renal dialysis; Z91.14 Patient's other noncompliance with medication regimen; Z79.4 Long term (current) use of insulin; Z87.891 Personal history of nicotine dependence; Z91.81 History of falling
CPT/HCPCS: 36415; 36600; 70450; 71045; 74018; 80053; 80069; 81001; 82140; 82607; 82803; 82947; 82962; 83036; 83605; 83880; 84145; 84443; 84484; 85025; 86705; 86706; 87040; 87340; 87400; 93005; 94640; 96365; 96366; G0378; J0456; J0696; J1644; J2405; J7060; J7613; J7620; J1815; J7050; J7512

== ENCOUNTER 2019-01-10 09:28 | Inpatient (IN) | payer MEDICARE, MEDICAID ==
[~2019-01-10] VITALS: Ht 165.1 cm; Wt 114.4 kg
[~2019-01-10 09:28] MED LIST changes: +AMOX1TAB12 PO; +ERGO800010 PO; -ERGO80004 PO; +INSU100I11 SQ-INSULIN; +INSU100I13 SQ-INSULIN; +OSEL30CA PO
--- NOTE | 2019-01-10 09:56 | NUR ---
PT TO ED FOR WORSENING SOB WITH COUGH SINCE PNA DIAGNOSED IN NOVEMBER. PT ADM DECEMBER 05-. PT STATES ALSO MISSED DIALYSIS YESTERDAY, USUALLY GOES M,W,F. CONNECTED TO MONITORS. VSS. PA TO BEDSIDE FOR ASSESSMENT. AWAITING ORDERS.
[2019-01-10] MEDS ORDERED: SODIUM CHLORIDE 0.9% 1,000 ML IV ONE (10:00)
--- NOTE | 2019-01-10 10:34 | NUR ---
pt resting in room. vss. iv established and labs drawn. no needs expressed. call light within reach. awawiting resutls.
[2019-01-10 10:43] LABS: BASOPHILS # (AUTO) 0.08 x10^3/uL (0-0.1); BASOPHILS % (AUTO) 1 % (0-1); EOSINOPHILS # (AUTO) 0.19 x10^3/uL (0-0.4); EOSINOPHILS % (AUTO) 2 % (1-7); LYMPHOCYTES # (AUTO) 1.23 x10^3/uL (1-3.4); LYMPHOCYTES % (AUTO) 11 % (22-44); MD NO; MEAN CORPUSCULAR HEMOGLOBIN 28.4 pg (27.5-34.5); MEAN CORPUSCULAR HGB CONC 32.7 g/dL (33.2-36.2); MEAN CORPUSCULAR VOLUME 86.8 fL (81-97); MEAN PLATELET VOLUME 9.8 fL (7.4-10.4); MONOCYTES # (AUTO) 0.64 x10^3/uL (0.2-0.8); MONOCYTES % (AUTO) 6 % (2-9); NEUTROPHILS # (AUTO) 9.15 x10^3/uL (1.8-6.8); NEUTROPHILS % (AUTO) 81 % (42-75); PLATELET COUNT 185 x10^3/uL (130-400); RED BLOOD COUNT 3.86 x10^6/uL (4.38-5.82); RED CELL DISTRIBUTION WIDTH 16.1 % (9.4-14.8)
[2019-01-10 10:54] LABS: ALBUMIN 3.4 g/dL (3.4-5.0); ANION GAP 11 mmol/L (5-15); CALCIUM 8.4 mg/dL (8.5-10.1); CHLORIDE 99 mmol/L (98-107)
[2019-01-10 10:55] LABS: CREATININE 6.64 mg/dL (0.7-1.3)
--- NOTE | 2019-01-10 12:04 | NUR ---
PT RESTING IN ROOM. EDMD UPDATED ON POC. PLAN TO ADMIT. PT AMENABLE TO POC.VSS. CALL LIGHT WIIN REACH. AWAITING ROOM ASSIGNMENT.
--- NOTE | 2019-01-10 12:20 | NUR ---
hospitalist to bedside.
[2019-01-10] MEDS ORDERED: ONDANSETRON ODT 4 MG PO PRN (12:30)
[2019-01-10] MEDS ORDERED: ACETAMINOPHEN 325 MG TABLET PO PRN (12:30)
[2019-01-10] MEDS ORDERED: ALBUTEROL SULFATE 2.5 MG/3 ML NEB PRN (12:30)
[2019-01-10] MEDS ORDERED: ONDANSETRON 2MG/ML, 2ML IVPush PRN (12:30)
--- NOTE | 2019-01-10 13:06 | NUR ---
pt resting in room. vss. no needs at this time. call light within reach. awaiting bed assignment.
[2019-01-10 13:30] LABS: HEMOGLOBIN A1C 9.1 % (4.2-6.3)
[2019-01-10] MEDS ORDERED: ZOLPIDEM 10MG TABLET PO PRN (14:00)
[2019-01-10] MEDS: CEFTRIAXONE PMX 2GM/50ML 50 ML IV SCH (15:53)
[2019-01-10] MEDS: HEPARIN 5,000 UNITS/ML, 1ML SQ SCH ×2 (15:54→20:57)
[2019-01-10] MEDS: PREGABALIN 100 MG CAPSULE PO SCH ×2 (15:56→21:52)
[2019-01-10 19:33] VITALS: BP 154/75
[2019-01-10] MEDS: IPRATROPIUM 0.5 MG/2.5 ML INHA NPPB SCH ×2 (19:55→20:30)
[2019-01-10] MEDS ORDERED: ATORVASTATIN 80 MG TABLET PO SCH (21:00)
[2019-01-10] MEDS: INSULIN GLARGINE 100 UNITS/ML, PEN SQ-INSULIN SCH (21:53)
[2019-01-11 00:39] VITALS: BP 165/65
[2019-01-11] MEDS: IPRATROPIUM 0.5 MG/2.5 ML INHA NPPB SCH ×4 (02:26→20:30)
[2019-01-11] MEDS: HEPARIN 5,000 UNITS/ML, 1ML SQ SCH ×2 (05:15→14:02)
[2019-01-11 05:28] LABS: ANION GAP 9 mmol/L (5-15); CALCIUM 8.6 mg/dL (8.5-10.1); CHLORIDE 104 mmol/L (98-107); CREATININE 6.85 mg/dL (0.7-1.3)
[2019-01-11 05:38] LABS: BASOPHILS # (AUTO) 0.03 x10^3/uL (0-0.1); BASOPHILS % (AUTO) 0 % (0-1); EOSINOPHILS # (AUTO) 0.33 x10^3/uL (0-0.4); EOSINOPHILS % (AUTO) 3 % (1-7); LYMPHOCYTES # (AUTO) 1.02 x10^3/uL (1-3.4); LYMPHOCYTES % (AUTO) 10 % (22-44); MD NO; MEAN CORPUSCULAR HEMOGLOBIN 29.2 pg (27.5-34.5); MEAN PLATELET VOLUME 9.9 fL (7.4-10.4); MONOCYTES # (AUTO) 0.57 x10^3/uL (0.2-0.8); MONOCYTES % (AUTO) 6 % (2-9); NEUTROPHILS # (AUTO) 8.08 x10^3/uL (1.8-6.8); NEUTROPHILS % (AUTO) 81 % (42-75); PLATELET COUNT 188 x10^3/uL (130-400); RED BLOOD COUNT 3.86 x10^6/uL (4.38-5.82); RED CELL DISTRIBUTION WIDTH 16.1 % (9.4-14.8)
[2019-01-11 06:30] VITALS: BP 188/75
[2019-01-11] MEDS ORDERED: ISOS10TA2 PO (08:45)
[2019-01-11] MEDS ORDERED: HYDR-3341 PO ×3 (08:48→08:49)
[2019-01-11] MEDS ORDERED: ASPIRIN 81 MG TABLET EC PO SCH (09:00)
[2019-01-11] MEDS ORDERED: CARVEDILOL 12.5 MG TABLET PO SCH (09:00)
[2019-01-11] MEDS: PREGABALIN 100 MG CAPSULE PO SCH ×2 (09:36→20:01)
[2019-01-11] MEDS: ISOSORBIDE DINITRATE 10 MG TABLET PO SCH ×2 (09:37→20:02)
[2019-01-11] MEDS: INSULIN GLARGINE 100 UNITS/ML, PEN SQ-INSULIN SCH (09:52)
[2019-01-11 12:59] VITALS: BP 150/62
[2019-01-11 19:50] VITALS: BP 171/68
[2019-01-11] MEDS: CEFTRIAXONE PMX 2GM/50ML 50 ML IV SCH (20:01)
== END 2019-01-11 21:50 | disposition home health service (06) | DRG 193 ==
LOC: ED 12:04 → EDIP 12:05 → ED 12:25 → 3NE 13:52
PROVIDERS: ADMIT Internal Medicine; ATTEND Internal Medicine
PROC: 5A1D70Z Performance of Urinary Filtration, Intermittent, Less than 6 Hours Per Day (ICD-10-PCS; principal; 2019-01-11)
DX: J18.9 Pneumonia, unspecified organism (principal); N18.6 End stage renal disease; I12.0 Hypertensive chronic kidney disease with stage 5 chronic kidney disease or end stage renal disease; Z68.41 Body mass index [BMI] 40.0-44.9, adult; J44.0 Chronic obstructive pulmonary disease with (acute) lower respiratory infection; E11.22 Type 2 diabetes mellitus with diabetic chronic kidney disease; E11.21 Type 2 diabetes mellitus with diabetic nephropathy; E11.40 Type 2 diabetes mellitus with diabetic neuropathy, unspecified; E11.65 Type 2 diabetes mellitus with hyperglycemia; E66.01 Morbid (severe) obesity due to excess calories; E78.5 Hyperlipidemia, unspecified; G47.30 Sleep apnea, unspecified; F41.9 Anxiety disorder, unspecified; I48.91 Unspecified atrial fibrillation; Z83.3 Family history of diabetes mellitus; Z87.01 Personal history of pneumonia (recurrent); Z91.19 Patient's noncompliance with other medical treatment and regimen; Z87.891 Personal history of nicotine dependence; Z99.2 Dependence on renal dialysis; Z90.49 Acquired absence of other specified parts of digestive tract
CPT/HCPCS: 36415; 71045; 80048; 82040; 82962; 83036; 83605; 84145; 85025; 86704; 86706; 87040; 87340; 93005; 94640; 99285; G0378; J0696; J1644; J7644; J1815; J7030

== ENCOUNTER 2019-01-27 08:13 | Emergency (ER) | payer MEDICARE, MEDICAID ==
[~2019-01-27] VITALS: Ht 165.1 cm; Wt 108.4 kg
[~2019-01-27 08:13] MED LIST changes: +HYDR-3341 PO; +ISOS10TA2 PO
--- NOTE | 2019-01-27 08:28 | NUR ---
BIB BY [facility] FROM HOME FOR LLQ ABD PAIN W/ NAUSEA X 1 MONTH. REPORTS HX OF HD (M/W/F) HAD HD ON WEDNESDAY. LEFT UPPER ARM FISTULA W/ + BRUIT/THRILL VSS W/ EXCEPTION OF HYPERTENSION (185/115) (PAIN?) REQUIRING 02 (REPORTS HOME USE OF 3L NC ALL DAY/NIGHT)
--- NOTE | 2019-01-27 08:33 | NUR ---
TOOK 15 UNITS SHORT ACTING FOR FSBS OF 511 AT 2AM. EMS BLOOD SUGAR OF 120 AT 8AM. TOOK 22 UNITS GLARGINE LAST NIGHT. NO SYMPTOMS REPORTED OR ASSESSED
--- NOTE | 2019-01-27 09:00 | NUR ---
YELLOW FALL RISK SOCKS PLACED PIV PLACED W/ US-LABS SENT (INCLUDING CULTURES IF ORDERED LATER) AFTER PIV PATIENT TO RADIOLOGY
[2019-01-27 09:12] LABS: BASOPHILS # (AUTO) 0.04 x10^3/uL (0-0.1); BASOPHILS % (AUTO) 0 % (0-1); EOSINOPHILS % (AUTO) 1 % (1-7); LYMPHOCYTES # (AUTO) 0.91 x10^3/uL (1-3.4); LYMPHOCYTES % (AUTO) 8 % (22-44); MD NO; MEAN CORPUSCULAR HEMOGLOBIN 29.4 pg (27.5-34.5); MEAN CORPUSCULAR HGB CONC 33.7 g/dL (33.2-36.2); MEAN CORPUSCULAR VOLUME 87.3 fL (81-97); MEAN PLATELET VOLUME 9.8 fL (7.4-10.4); MONOCYTES # (AUTO) 0.83 x10^3/uL (0.2-0.8); MONOCYTES % (AUTO) 7 % (2-9); NEUTROPHILS # (AUTO) 10.11 x10^3/uL (1.8-6.8); NEUTROPHILS % (AUTO) 84 % (42-75); PLATELET COUNT 189 x10^3/uL (130-400); RED BLOOD COUNT 3.77 x10^6/uL (4.38-5.82); RED CELL DISTRIBUTION WIDTH 16.2 % (9.4-14.8)
[2019-01-27 09:21] LABS: ALBUMIN 3.4 g/dL (3.4-5.0); ANION GAP 10 mmol/L (5-15); CALCIUM 8.3 mg/dL (8.5-10.1); CHLORIDE 97 mmol/L (98-107)
[2019-01-27 09:27] LABS: ALANINE AMINOTRANSFERASE 51 U/L (12-78); ALKALINE PHOSPHATASE 95 U/L (45-117); BILIRUBIN,TOTAL 0.4 mg/dL (0.2-1.0); CREATININE 5.12 mg/dL (0.7-1.3)
--- NOTE | 2019-01-27 09:58 | NUR ---
AFTER CLARIFICATION W/ PROVIDER-DIABETIC DIET ORDERED FOR PATIENT PATIENT ASKING FOR FOOD VITALS UPDATED-NOW NORMOTENSIVE UPDATED ON POC CALL JAEGER IN HAND/SIDE RAILS UP
[2019-01-27 10:18] LABS: TROPONIN I 0.028 ng/mL (0.000-0.045)
[2019-01-27 10:35] LABS: MICROSCOPIC INDICATED
[2019-01-27 10:46] LABS: CULTURE INDICATED? NO
[2019-01-27 12:08] VITALS: BP 134/83
== END 2019-01-27 12:13 | disposition home or self-care (01) ==
LOC: ED 08:46
DX: E11.22 Type 2 diabetes mellitus with diabetic chronic kidney disease (principal); N18.6 End stage renal disease; E11.65 Type 2 diabetes mellitus with hyperglycemia; K59.00 Constipation, unspecified; I10 Essential (primary) hypertension; J44.9 Chronic obstructive pulmonary disease, unspecified; E78.5 Hyperlipidemia, unspecified; Z87.01 Personal history of pneumonia (recurrent); Z90.49 Acquired absence of other specified parts of digestive tract; Z90.89 Acquired absence of other organs
CPT/HCPCS: 36415; 74022; 80053; 81001; 83690; 84484; 85025; 93005; 99284

== ENCOUNTER 2019-06-27 09:11 | Outpatient (CLI) | payer MEDICARE, MEDICAID ==
[~2019-06-27 09:11] MED LIST changes: -OSEL30CA PO; +OSEL30CA12 PO; +REGADENOSON 0.4 MG/5 ML SYRINGE ONE
== END 2019-06-27 23:59 | disposition home or self-care (01) ==
LOC: CFH 09:11
PROVIDERS: ATTEND Internal Medicine Cardiovascular Disease
DX: Z02.9 Encounter for administrative examinations, unspecified (principal)
CPT/HCPCS: J2785

== ENCOUNTER 2019-07-07 19:15 | Inpatient (IN) | payer MEDICARE, MEDICAID ==
[~2019-07-07] VITALS: Ht 182.9 cm; Wt 109.1 kg
[~2019-07-07 19:15] MED LIST changes: -REGADENOSON 0.4 MG/5 ML SYRINGE ONE
--- NOTE | 2019-07-07 19:31 | NUR ---
BIB [facility], PER EMS PT MISSED 2 DIALYSIS APPOINTMENTS IN THE PAST. USUALLY MON/WED/FRI. PT C/O WEAKENSS AND SOB FOR THE PAST WEEK. 2L NS AT BASELINE AT HOME. PT ATTACHED TO ALL MONITORS. ER MD DOHERTY IN TO ASSESS PT. CALL LIGHT WITHIN REACH.
[2019-07-07] MEDS ORDERED: PANT20TA3 PO (20:01)
[2019-07-07] MEDS ORDERED: FA/V1TAB PO (20:01)
[2019-07-07] MEDS ORDERED: FURO40TA6 PO (20:01)
[2019-07-07] MEDS ORDERED: CLON0.1T22 PO (20:01)
[2019-07-07] MEDS ORDERED: SEVE800T8 PO (20:01)
[2019-07-07 20:15] LABS: MEAN CORPUSCULAR HEMOGLOBIN 30.2 pg (27.5-34.5); MEAN CORPUSCULAR VOLUME 91.4 fL (81-97); MEAN PLATELET VOLUME 9.7 fL (7.4-10.4); PLATELET COUNT 134 x10^3/uL (130-400); RED BLOOD COUNT 3.72 x10^6/uL (4.38-5.82)
[2019-07-07 20:20] LABS: ALANINE AMINOTRANSFERASE 15 U/L (12-78); ALBUMIN 3.2 g/dL (3.4-5.0); ANION GAP 8 mmol/L (5-15); CALCIUM 8.6 mg/dL (8.5-10.1); CHLORIDE 98 mmol/L (98-107); CREATININE 6.69 mg/dL (0.7-1.3)
[2019-07-07 20:22] LABS: ALKALINE PHOSPHATASE 109 U/L (45-117); BILIRUBIN,TOTAL 0.5 mg/dL (0.2-1.0); TOTAL PROTEIN 7.6 g/dL (6.4-8.2)
[2019-07-07 20:39] LABS: MD YES
[2019-07-07 20:55] LABS: <PLATELET ESTIMATE> ADEQUATE; <PLT MORPHOLOGY> NORMAL PLT MORPH; <RBC MORPHOLOGY> NORMAL; BAND#(MANUAL) 0.58 x10^3/uL; BANDS%(MANUAL) 3 % (0-7); LYMPH#(MANUAL) 0.77 x10^3/uL (1-3.4); LYMPHS% (MANUAL) 4 % (22-44); MONOS#(MANUAL) 0.58 x10^3/uL (0.3-2.7); MONOS% (MANUAL) 3 % (2-9); SEG#(MANUAL) 17.28 x10^3/uL (1.8-6.8); SEGS% (MANUAL) 90 % (42-75)
[2019-07-07] MEDS ORDERED: CEFTRIAXONE PMX 1GM/50ML 50 ML IVPB ONE (21:30)
[2019-07-07] MEDS ORDERED: AZITHROMYCIN 500 MG in SODIUM CHLORIDE 0.9% 250 ML IV ONE (21:30)
[2019-07-07] MEDS ORDERED: CEFTRIAXONE PMX 1GM/50ML 50 ML ONE (21:38)
--- NOTE | 2019-07-07 22:12 | NUR ---
REPORT GIVEN TO GALINA QUEVEDO
[2019-07-08] MEDS ORDERED: PROMETHAZINE 25 MG/ML, 1ML IM PRN
[2019-07-08] MEDS ORDERED: ACETAMINOPHEN 325 MG TABLET PO PRN
[2019-07-08 00:34] VITALS: BP 153/88
[2019-07-08 00:40] LABS: HEMOGLOBIN A1C 8.9 % (4.2-6.3)
[2019-07-08] MEDS: INSULIN LISPRO 100 UNITS/ML, PEN SQ-INSULIN SCH ×5 (01:05→20:07)
[2019-07-08] MEDS: HEPARIN 5,000 UNITS/ML, 1ML SQ SCH ×3 (01:06→22:05)
[2019-07-08 01:25] VITALS: BP 149/63
[2019-07-08] MEDS: ISOSORBIDE DINITRATE 10 MG TABLET PO SCH ×4 (01:53→20:06)
[2019-07-08] MEDS: CARVEDILOL 12.5 MG TABLET PO SCH ×2 (01:53→20:07)
[2019-07-08] MEDS ORDERED: IPRATROPIUM 0.5 MG/2.5 ML INHA NPPB SCH ×2 (03:30→09:00)
[2019-07-08 05:15] LABS: MEAN CORPUSCULAR HEMOGLOBIN 30.1 pg (27.5-34.5); MEAN CORPUSCULAR HGB CONC 32.8 g/dL (33.2-36.2); MEAN PLATELET VOLUME 9.9 fL (7.4-10.4); PLATELET COUNT 131 x10^3/uL (130-400); RED BLOOD COUNT 3.54 x10^6/uL (4.38-5.82); RED CELL DISTRIBUTION WIDTH 14.9 % (9.4-14.8)
[2019-07-08 05:27] LABS: ANION GAP 11 mmol/L (5-15); CALCIUM 8.4 mg/dL (8.5-10.1); CHLORIDE 100 mmol/L (98-107)
[2019-07-08 05:30] LABS: CREATININE 7.18 mg/dL (0.7-1.3)
[2019-07-08] MEDS: PANTOPRAZOLE 20MG TABLET PO SCH (05:40)
[2019-07-08 05:51] LABS: BASOPHILS # (AUTO) 0.01 x10^3/uL (0-0.1); BASOPHILS % (AUTO) 0 % (0-1); EOSINOPHILS % (AUTO) 0 % (1-7); LYMPHOCYTES # (AUTO) 0.85 x10^3/uL (1-3.4); LYMPHOCYTES % (AUTO) 4 % (22-44); MD SCAN; MONOCYTES # (AUTO) 1.22 x10^3/uL (0.2-0.8); MONOCYTES % (AUTO) 6 % (2-9); NEUTROPHILS # (AUTO) 18.95 x10^3/uL (1.8-6.8); NEUTROPHILS % (AUTO) 90 % (42-75)
[2019-07-08 07:30] VITALS: BP 162/79
[2019-07-08] MEDS: ASPIRIN 81 MG TABLET EC PO SCH (08:27)
[2019-07-08] MEDS ORDERED: PREGABALIN 100 MG CAPSULE PO SCH (09:00)
[2019-07-08] MEDS: CEFTRIAXONE PMX 2GM/50ML 50 ML IV SCH (09:55)
[2019-07-08] MEDS: INSULIN GLARGINE 100 UNITS/ML, PEN SQ-INSULIN SCH ×2 (09:55→20:07)
[2019-07-08 12:31] VITALS: BP 132/79
[2019-07-08 13:01] LABS: O2 FLOW 3 L/min
[2019-07-08] MEDS: ALBUTEROL/IPRATROPIUM 2.5MG/0.5MG, 3 ML HHN SCH ×2 (15:00→19:29)
[2019-07-08 20:04] VITALS: BP 126/62
[2019-07-08] MEDS: ATORVASTATIN 80 MG TABLET PO SCH (20:06)
[2019-07-08] MEDS: DOXYCYCLINE 100 MG in DEXTROSE 5% 250 ML IV SCH (22:05)
[2019-07-09 01:58] VITALS: BP 146/66
[2019-07-09] MEDS: ALBUTEROL/IPRATROPIUM 2.5MG/0.5MG, 3 ML HHN SCH ×4 (02:51→19:45)
[2019-07-09 05:34] LABS: ANION GAP 9 mmol/L (5-15); CALCIUM 8.4 mg/dL (8.5-10.1); CHLORIDE 101 mmol/L (98-107); CREATININE 5.54 mg/dL (0.7-1.3)
[2019-07-09 05:38] LABS: MEAN CORPUSCULAR HEMOGLOBIN 30.1 pg (27.5-34.5); MEAN CORPUSCULAR HGB CONC 33.1 g/dL (33.2-36.2); MEAN CORPUSCULAR VOLUME 90.7 fL (81-97); MEAN PLATELET VOLUME 10.1 fL (7.4-10.4); PLATELET COUNT 136 x10^3/uL (130-400); RED BLOOD COUNT 3.56 x10^6/uL (4.38-5.82); RED CELL DISTRIBUTION WIDTH 14.9 % (9.4-14.8)
[2019-07-09 06:05] LABS: BASOPHILS # (AUTO) 0.03 x10^3/uL (0-0.1); BASOPHILS % (AUTO) 0 % (0-1); EOSINOPHILS % (AUTO) 1 % (1-7); LYMPHOCYTES # (AUTO) 0.82 x10^3/uL (1-3.4); LYMPHOCYTES % (AUTO) 6 % (22-44); MD SCAN; MONOCYTES # (AUTO) 0.98 x10^3/uL (0.2-0.8); MONOCYTES % (AUTO) 7 % (2-9); NEUTROPHILS # (AUTO) 11.32 x10^3/uL (1.8-6.8); NEUTROPHILS % (AUTO) 85 % (42-75)
[2019-07-09] MEDS: PANTOPRAZOLE 20MG TABLET PO SCH (06:34)
[2019-07-09] MEDS: HEPARIN 5,000 UNITS/ML, 1ML SQ SCH ×3 (06:34→22:12)
[2019-07-09 07:45] VITALS: BP 147/59
[2019-07-09] MEDS: ISOSORBIDE DINITRATE 10 MG TABLET PO SCH ×3 (08:59→20:34)
[2019-07-09] MEDS: INSULIN GLARGINE 100 UNITS/ML, PEN SQ-INSULIN SCH ×2 (09:00→20:35)
[2019-07-09] MEDS: CARVEDILOL 12.5 MG TABLET PO SCH (09:00)
[2019-07-09] MEDS: ASPIRIN 81 MG TABLET EC PO SCH (09:00)
[2019-07-09] MEDS: INSULIN LISPRO 100 UNITS/ML, PEN SQ-INSULIN SCH ×4 (09:01→20:35)
[2019-07-09] MEDS: DOXYCYCLINE 100 MG in DEXTROSE 5% 250 ML IV SCH ×2 (09:35→22:12)
[2019-07-09] MEDS: CEFTRIAXONE PMX 2GM/50ML 50 ML IV SCH (10:54)
[2019-07-09 13:50] VITALS: BP 152/84
[2019-07-09] MEDS: DILTIAZEM 90 MG TABLET PO SCH ×2 (16:04→20:34)
[2019-07-09 19:54] VITALS: BP 146/57
[2019-07-09] MEDS: ATORVASTATIN 80 MG TABLET PO SCH (20:34)
[2019-07-09] MEDS: CALCIUM CARBONATE 500 MG TAB.CHEW PO PRN (21:02)
[2019-07-10 01:55] VITALS: BP 142/69
[2019-07-10] MEDS: CALCIUM CARBONATE 500 MG TAB.CHEW PO PRN (02:00)
[2019-07-10 05:27] LABS: BASOPHILS # (AUTO) 0.02 x10^3/uL (0-0.1); BASOPHILS % (AUTO) 0 % (0-1); EOSINOPHILS # (AUTO) 0.13 x10^3/uL (0-0.4); EOSINOPHILS % (AUTO) 1 % (1-7); LYMPHOCYTES # (AUTO) 0.88 x10^3/uL (1-3.4); LYMPHOCYTES % (AUTO) 8 % (22-44); MD NO; MEAN CORPUSCULAR HEMOGLOBIN 29.5 pg (27.5-34.5); MEAN CORPUSCULAR VOLUME 89.3 fL (81-97); MEAN PLATELET VOLUME 9.6 fL (7.4-10.4); MONOCYTES # (AUTO) 1.19 x10^3/uL (0.2-0.8); MONOCYTES % (AUTO) 10 % (2-9); NEUTROPHILS # (AUTO) 9.53 x10^3/uL (1.8-6.8); NEUTROPHILS % (AUTO) 81 % (42-75); PLATELET COUNT 156 x10^3/uL (130-400); RED CELL DISTRIBUTION WIDTH 14.7 % (9.4-14.8)
[2019-07-10 05:35] LABS: ANION GAP 13 mmol/L (5-15); CALCIUM 8.9 mg/dL (8.5-10.1); CHLORIDE 99 mmol/L (98-107); CREATININE 7.06 mg/dL (0.7-1.3)
[2019-07-10] MEDS: DILTIAZEM 90 MG TABLET PO SCH (05:44)
[2019-07-10] MEDS: HEPARIN 5,000 UNITS/ML, 1ML SQ SCH ×3 (05:44→22:10)
[2019-07-10] MEDS: PANTOPRAZOLE 20MG TABLET PO SCH (05:44)
[2019-07-10 07:24] VITALS: BP 137/67
[2019-07-10] MEDS: INSULIN LISPRO 100 UNITS/ML, PEN SQ-INSULIN SCH ×4 (07:32→20:46)
[2019-07-10] MEDS: INSULIN GLARGINE 100 UNITS/ML, PEN SQ-INSULIN SCH ×2 (07:32→20:46)
[2019-07-10] MEDS: ASPIRIN 81 MG TABLET EC PO SCH (07:33)
[2019-07-10] MEDS: ALBUTEROL/IPRATROPIUM 2.5MG/0.5MG, 3 ML HHN SCH ×4 (08:10→21:00)
[2019-07-10] MEDS: CARVEDILOL 12.5 MG TABLET PO SCH (12:17)
[2019-07-10] MEDS: ISOSORBIDE DINITRATE 10 MG TABLET PO SCH ×3 (12:18→20:47)
[2019-07-10] MEDS: CEFTRIAXONE PMX 2GM/50ML 50 ML IV SCH (12:18)
[2019-07-10] MEDS: DOXYCYCLINE 100 MG in DEXTROSE 5% 250 ML IV SCH ×2 (13:08→22:10)
[2019-07-10 14:30] VITALS: BP 176/75
[2019-07-10 16:40] VITALS: BP 175/68
[2019-07-10] MEDS: hydrALAzine 20 MG/ML, 1ML IVPush PRN (16:43)
[2019-07-10 19:09] LABS: BASOPHILS # (AUTO) 0.02 x10^3/uL (0-0.1); BASOPHILS % (AUTO) 0 % (0-1); EOSINOPHILS # (AUTO) 0.14 x10^3/uL (0-0.4); EOSINOPHILS % (AUTO) 1 % (1-7); LYMPHOCYTES # (AUTO) 0.57 x10^3/uL (1-3.4); LYMPHOCYTES % (AUTO) 6 % (22-44); MD NO; MEAN CORPUSCULAR HEMOGLOBIN 30.1 pg (27.5-34.5); MEAN CORPUSCULAR HGB CONC 33.3 g/dL (33.2-36.2); MEAN CORPUSCULAR VOLUME 90.3 fL (81-97); MEAN PLATELET VOLUME 9.3 fL (7.4-10.4); MONOCYTES # (AUTO) 0.89 x10^3/uL (0.2-0.8); MONOCYTES % (AUTO) 9 % (2-9); NEUTROPHILS # (AUTO) 7.96 x10^3/uL (1.8-6.8); NEUTROPHILS % (AUTO) 83 % (42-75); PLATELET COUNT 181 x10^3/uL (130-400); RED BLOOD COUNT 3.72 x10^6/uL (4.38-5.82); RED CELL DISTRIBUTION WIDTH 14.9 % (9.4-14.8)
[2019-07-10 19:16] LABS: ANION GAP 8 mmol/L (5-15); CALCIUM 9.2 mg/dL (8.5-10.1); CHLORIDE 102 mmol/L (98-107)
[2019-07-10 19:19] LABS: ALANINE AMINOTRANSFERASE 23 U/L (12-78); ALKALINE PHOSPHATASE 140 U/L (45-117); BILIRUBIN,TOTAL 0.4 mg/dL (0.2-1.0); CREATININE 5.14 mg/dL (0.7-1.3); TOTAL PROTEIN 7.8 g/dL (6.4-8.2)
[2019-07-10 20:00] VITALS: BP 142/55
[2019-07-10] MEDS: ATORVASTATIN 80 MG TABLET PO SCH (20:47)
[2019-07-11 01:15] VITALS: BP 180/77
[2019-07-11] MEDS: hydrALAzine 20 MG/ML, 1ML IVPush PRN ×2 (01:59→07:45)
[2019-07-11] MEDS: ALBUTEROL/IPRATROPIUM 2.5MG/0.5MG, 3 ML HHN SCH ×4 (02:09→21:59)
[2019-07-11 02:40] LABS: MICROSCOPIC INDICATED
[2019-07-11] MEDS: HEPARIN 5,000 UNITS/ML, 1ML SQ SCH ×3 (05:23→22:12)
[2019-07-11] MEDS: PANTOPRAZOLE 20MG TABLET PO SCH (05:24)
[2019-07-11 05:31] LABS: BASOPHILS # (AUTO) 0.01 x10^3/uL (0-0.1); BASOPHILS % (AUTO) 0 % (0-1); EOSINOPHILS # (AUTO) 0.09 x10^3/uL (0-0.4); EOSINOPHILS % (AUTO) 1 % (1-7); LYMPHOCYTES # (AUTO) 0.82 x10^3/uL (1-3.4); LYMPHOCYTES % (AUTO) 8 % (22-44); MD NO; MEAN CORPUSCULAR HEMOGLOBIN 29.9 pg (27.5-34.5); MEAN CORPUSCULAR HGB CONC 33.5 g/dL (33.2-36.2); MEAN CORPUSCULAR VOLUME 89.3 fL (81-97); MEAN PLATELET VOLUME 9.8 fL (7.4-10.4); MONOCYTES # (AUTO) 0.97 x10^3/uL (0.2-0.8); MONOCYTES % (AUTO) 9 % (2-9); NEUTROPHILS # (AUTO) 8.86 x10^3/uL (1.8-6.8); NEUTROPHILS % (AUTO) 83 % (42-75); PLATELET COUNT 208 x10^3/uL (130-400); RED BLOOD COUNT 3.88 x10^6/uL (4.38-5.82); RED CELL DISTRIBUTION WIDTH 14.8 % (9.4-14.8)
[2019-07-11 05:44] LABS: ANION GAP 11 mmol/L (5-15); CALCIUM 9.3 mg/dL (8.5-10.1); CHLORIDE 103 mmol/L (98-107)
[2019-07-11 05:46] LABS: CREATININE 5.72 mg/dL (0.7-1.3)
[2019-07-11] MEDS: INSULIN LISPRO 100 UNITS/ML, PEN SQ-INSULIN SCH ×4 (07:00→20:26)
[2019-07-11 07:02] VITALS: BP 183/71
[2019-07-11] MEDS: ASPIRIN 81 MG TABLET EC PO SCH (07:46)
[2019-07-11] MEDS: INSULIN GLARGINE 100 UNITS/ML, PEN SQ-INSULIN SCH ×2 (07:46→20:25)
[2019-07-11] MEDS: ISOSORBIDE DINITRATE 10 MG TABLET PO SCH ×3 (07:46→20:25)
[2019-07-11] MEDS: CARVEDILOL 12.5 MG TABLET PO SCH (07:46)
[2019-07-11] MEDS: CEFTRIAXONE PMX 2GM/50ML 50 ML IV SCH (09:37)
[2019-07-11] MEDS ORDERED: FUROSEMIDE 40 MG TABLET PO SCH (10:00)
[2019-07-11 10:28] VITALS: BP 132/60
[2019-07-11] MEDS: DOXYCYCLINE 100 MG in DEXTROSE 5% 250 ML IV SCH ×2 (10:35→22:12)
[2019-07-11] MEDS: ATORVASTATIN 80 MG TABLET PO SCH (10:35)
[2019-07-11] MEDS ORDERED: MELATONIN 3 MG TABLET PO PRN (11:00)
[2019-07-11] MEDS: LOSARTAN 50MG TABLET PO SCH (11:56)
[2019-07-11 15:48] VITALS: BP 152/63
[2019-07-11 19:02] VITALS: BP 156/77
[2019-07-12 00:35] VITALS: BP 152/67
[2019-07-12] MEDS: ALBUTEROL/IPRATROPIUM 2.5MG/0.5MG, 3 ML HHN SCH ×3 (03:00→14:40)
[2019-07-12] MEDS: HEPARIN 5,000 UNITS/ML, 1ML SQ SCH ×2 (05:36→14:00)
[2019-07-12] MEDS: PANTOPRAZOLE 20MG TABLET PO SCH (05:36)
[2019-07-12 06:19] LABS: BASOPHILS # (AUTO) 0.01 x10^3/uL (0-0.1); BASOPHILS % (AUTO) 0 % (0-1); EOSINOPHILS # (AUTO) 0.14 x10^3/uL (0-0.4); EOSINOPHILS % (AUTO) 2 % (1-7); LYMPHOCYTES # (AUTO) 0.84 x10^3/uL (1-3.4); LYMPHOCYTES % (AUTO) 9 % (22-44); MD NO; MEAN CORPUSCULAR HEMOGLOBIN 30.1 pg (27.5-34.5); MEAN CORPUSCULAR HGB CONC 33.6 g/dL (33.2-36.2); MEAN CORPUSCULAR VOLUME 89.5 fL (81-97); MEAN PLATELET VOLUME 9.3 fL (7.4-10.4); MONOCYTES # (AUTO) 0.93 x10^3/uL (0.2-0.8); MONOCYTES % (AUTO) 10 % (2-9); NEUTROPHILS # (AUTO) 7.37 x10^3/uL (1.8-6.8); NEUTROPHILS % (AUTO) 79 % (42-75); PLATELET COUNT 215 x10^3/uL (130-400); RED BLOOD COUNT 3.91 x10^6/uL (4.38-5.82); RED CELL DISTRIBUTION WIDTH 14.7 % (9.4-14.8)
[2019-07-12 06:31] LABS: ANION GAP 14 mmol/L (5-15); CALCIUM 9.3 mg/dL (8.5-10.1); CHLORIDE 103 mmol/L (98-107); CREATININE 6.79 mg/dL (0.7-1.3)
[2019-07-12] MEDS: INSULIN LISPRO 100 UNITS/ML, PEN SQ-INSULIN SCH ×2 (07:00→11:00)
[2019-07-12 08:30] VITALS: BP 136/65
[2019-07-12] MEDS: DOXYCYCLINE 100 MG in DEXTROSE 5% 250 ML IV SCH (10:00)
[2019-07-12] MEDS: CEFTRIAXONE PMX 2GM/50ML 50 ML IV SCH (12:35)
[2019-07-12] MEDS: ISOSORBIDE DINITRATE 10 MG TABLET PO SCH (12:36)
[2019-07-12] MEDS: ASPIRIN 81 MG TABLET EC PO SCH (12:36)
[2019-07-12] MEDS: LOSARTAN 50MG TABLET PO SCH (12:36)
[2019-07-12] MEDS: CARVEDILOL 12.5 MG TABLET PO SCH (12:36)
[2019-07-12] MEDS: INSULIN GLARGINE 100 UNITS/ML, PEN SQ-INSULIN SCH (12:37)
[2019-07-12] MEDS ORDERED: DOXY100T10 PO (13:52)
[2019-07-12] MEDS ORDERED: LOSA50TA2 PO (13:52)
[2019-07-12] MEDS ORDERED: CEFD300C37 PO (13:52)
== END 2019-07-12 15:20 | disposition home health service (06) | DRG 871 ==
LOC: ED 20:42 → EDIP 21:54 → 4EST 22:50 → DCLOUNGE 07-12 15:02
PROVIDERS: ADMIT Family Medicine; ATTEND Family Medicine
PROC: 5A1D70Z Performance of Urinary Filtration, Intermittent, Less than 6 Hours Per Day (ICD-10-PCS; principal; 2019-07-08)
PROC: 5A1D70Z Performance of Urinary Filtration, Intermittent, Less than 6 Hours Per Day (ICD-10-PCS; 2019-07-10)
PROC: 5A1D70Z Performance of Urinary Filtration, Intermittent, Less than 6 Hours Per Day (ICD-10-PCS; 2019-07-12)
DX: A41.9 Sepsis, unspecified organism (principal); J15.9 Unspecified bacterial pneumonia; J96.21 Acute and chronic respiratory failure with hypoxia; N18.6 End stage renal disease; I50.41 Acute combined systolic (congestive) and diastolic (congestive) heart failure; D68.69 Other thrombophilia; G93.40 Encephalopathy, unspecified; I13.2 Hypertensive heart and chronic kidney disease with heart failure and with stage 5 chronic kidney disease, or end stage renal disease; J44.0 Chronic obstructive pulmonary disease with (acute) lower respiratory infection; J44.1 Chronic obstructive pulmonary disease with (acute) exacerbation; D63.1 Anemia in chronic kidney disease; E11.21 Type 2 diabetes mellitus with diabetic nephropathy; E11.22 Type 2 diabetes mellitus with diabetic chronic kidney disease; E11.40 Type 2 diabetes mellitus with diabetic neuropathy, unspecified; E11.65 Type 2 diabetes mellitus with hyperglycemia; E66.9 Obesity, unspecified; Z68.32 Body mass index [BMI] 32.0-32.9, adult; E78.5 Hyperlipidemia, unspecified; G47.33 Obstructive sleep apnea (adult) (pediatric); I25.10 Atherosclerotic heart disease of native coronary artery without angina pectoris; I27.20 Pulmonary hypertension, unspecified; I48.0 Paroxysmal atrial fibrillation; Z96.641 Presence of right artificial hip joint; I77.819 Aortic ectasia, unspecified site; K21.9 Gastro-esophageal reflux disease without esophagitis; N25.0 Renal osteodystrophy; Z79.4 Long term (current) use of insulin; Z83.3 Family history of diabetes mellitus; Z86.718 Personal history of other venous thrombosis and embolism; Z86.73 Personal history of transient ischemic attack (TIA), and cerebral infarction without residual deficits; Z91.81 History of falling; Z87.891 Personal history of nicotine dependence; Z95.5 Presence of coronary angioplasty implant and graft; Z99.2 Dependence on renal dialysis; Z99.81 Dependence on supplemental oxygen; Z90.49 Acquired absence of other specified parts of digestive tract
CPT/HCPCS: 36415; 36600; 70450; 71045; 80047; 80048; 80053; 81001; 82140; 82803; 82962; 83036; 83605; 83735; 83880; 84100; 84145; 85025; 86705; 86706; 87040; 87340; 90935; 93005; 93306; 94640; 96365; 96375; G0378; J0456; J0696; J1644; J7060; J7620; J7644; J0360; J1815; J7050

== ENCOUNTER 2019-08-17 19:26 | Inpatient (IN) | payer MEDICARE, MEDICAID ==
[~2019-08-17] VITALS: Ht 165.1 cm; Wt 102.6 kg
[~2019-08-17 19:26] MED LIST changes: +CLON0.1T22 PO; -DOXY100T10 PO; +DOXY100T23 PO; +ETOMIDATE 20 MG/10 ML ONE; +FA/V1TAB PO; +LOSA50TA2 PO; +MIDAZOLAM 1 MG/ML, 5ML ONE; +PANT20TA3 PO; +PROPOFOL 100 ML IV ONE; +SUCCINYLCHOLINE 20 MG/ML, 10ML ONE
[2019-08-17 19:59] LABS: BASOPHILS # (AUTO) 0.03 x10^3/uL (0-0.1); BASOPHILS % (AUTO) 0 % (0-1); EOSINOPHILS # (AUTO) 0.16 x10^3/uL (0-0.4); EOSINOPHILS % (AUTO) 1 % (1-7); LYMPHOCYTES # (AUTO) 1.97 x10^3/uL (1-3.4); LYMPHOCYTES % (AUTO) 16 % (22-44); MD NO; MEAN CORPUSCULAR HEMOGLOBIN 29.3 pg (27.5-34.5); MEAN CORPUSCULAR HGB CONC 32.2 g/dL (33.2-36.2); MEAN CORPUSCULAR VOLUME 91.2 fL (81-97); MEAN PLATELET VOLUME 10.1 fL (7.4-10.4); MONOCYTES # (AUTO) 0.53 x10^3/uL (0.2-0.8); MONOCYTES % (AUTO) 4 % (2-9); NEUTROPHILS # (AUTO) 9.49 x10^3/uL (1.8-6.8); NEUTROPHILS % (AUTO) 78 % (42-75); PLATELET COUNT 190 x10^3/uL (130-400); RED BLOOD COUNT 3.92 x10^6/uL (4.38-5.82); RED CELL DISTRIBUTION WIDTH 16.6 % (9.4-14.8)
[2019-08-17] MEDS ORDERED: SUCCINYLCHOLINE 20 MG/ML, 10ML IVPush ONE (20:00)
[2019-08-17] MEDS ORDERED: SODIUM CHLORIDE FLUSH 10ML SYR IVF ONE (20:00)
[2019-08-17] MEDS ORDERED: MIDAZOLAM 1 MG/ML, 2ML IVPush ONE (20:00)
[2019-08-17] MEDS ORDERED: VANCOMYCIN PER PHARMACY MC ONE (20:00)
[2019-08-17] MEDS ORDERED: ETOMIDATE 20 MG/10 ML IV ONE (20:00)
[2019-08-17] MEDS ORDERED: PIPERACILLIN/TAZO/PMX 3.375GM 50 ML IV ONE (20:00)
[2019-08-17] MEDS ORDERED: PLEASE ENTER HEIGHT AND WEIGHT MC SCH (20:00)
[2019-08-17 20:08] LABS: ALBUMIN 3.5 g/dL (3.4-5.0); ANION GAP 10 mmol/L (5-15); CALCIUM 8.7 mg/dL (8.5-10.1); CHLORIDE 96 mmol/L (98-107); CREATININE 6.41 mg/dL (0.7-1.3)
--- NOTE | 2019-08-17 20:39 | NUR ---
PT BIB [facility] FOR SOB AND PRODUCTIVE COUGH X 1 DAY. PT STRIPPED OF CLOTHING, PT MEDICATED FOR ANXIETY, ANOTHER IV STARTED, PT TUBED WITH 8.0 ET TUBE 26 AT LIP. PT PLACED ON VENT AT 18 BREATH PER MIN, 450ML VOLUME, 80% O2, PEEP 5. KOHLER PLACED, ORAL GASTRIC TUBE PLACED AND SECURED TO ET TUBE, PLACED TO LOW CONT. WALL SUCTION. PT RESTING CALMLY ON ORDERED SEDATION. SOFT WRIST RESTRAINTS IN PLACE.
[2019-08-17] MEDS ORDERED: PIPERACILLIN/TAZO/PMX 3.375GM 50 ML ONE (20:50)
[2019-08-17] MEDS ORDERED: VANCOMYCIN 2,100 MG in SODIUM CHLORIDE 0.9% 500 ML IV ONE (21:00)
--- NOTE | 2019-08-17 21:05 | NUR ---
PT CONTINUES TO REST CALMLY IN BED. BLOOD CULTURES HAVE BEEN DRAWN. PT IS BANDED, ORDERED ABX STARTED. VSS, SEE CHARTED.
[2019-08-17] MEDS ORDERED: SENNA 176 MG/5 ML ORAL SOL NG PRN (21:30)
[2019-08-17] MEDS ORDERED: LINEZOLID PMX 600MG/300ML 300 ML IV SCH (21:30)
[2019-08-17] MEDS ORDERED: LACTULOSE 20 GM/30 ML UDC NG PRN (21:30)
[2019-08-17] MEDS ORDERED: SENNA/DOCUSATE TABLET NG PRN (21:30)
[2019-08-17] MEDS ORDERED: BISACODYL 10 MG SUPP PR PRN ×2 (21:30→23:00)
[2019-08-17] MEDS ORDERED: LIDOCAINE-MPF 1%, 2ML ENDO PRN (21:30)
[2019-08-17] MEDS ORDERED: GLUCAGON 1 MG IM PRN (21:30)
[2019-08-17] MEDS ORDERED: PHARMACY MAY ADJ FOR RENAL FX MC SCH (21:30)
[2019-08-17] MEDS ORDERED: DEXTROSE 4 GM TAB.CHEW PO PRN (21:30)
[2019-08-17] MEDS ORDERED: PIPERACILLIN/TAZO/PMX 2.25GM 50 ML IV SCH (21:30)
[2019-08-17] MEDS ORDERED: FENTANYL PF 100 MCG/2ML IVPush PRN (21:30)
[2019-08-17] MEDS ORDERED: DEXTROSE 50%, 50ML SYRINGE IVPush PRN (21:30)
--- NOTE | 2019-08-17 21:34 | NUR ---
REPORT TO VALERIA MOJICA FOR ROOM ICU 3
[2019-08-17 21:45] LABS: TROPONIN I 0.782 ng/mL (0.000-0.045)
[2019-08-17 21:46] LABS: INTERNATIONAL NORMALIZED RATIO 1.06 (0.93-1.1); PROTHROMBIN TIME 11.1 Seconds (9.6-11.5)
[2019-08-17] MEDS: ALBUTEROL/IPRATROPIUM 2.5MG/0.5MG, 3 ML INLINE SCH (22:03)
[2019-08-17] MEDS: HEPARIN 5,000 UNITS/ML, 1ML SQ SCH (22:28)
[2019-08-17] MEDS: PROPOFOL 100 ML IV PRN (22:31)
[2019-08-17] MEDS ORDERED: POLYETHYLENE GLYCOL 17 GM PACKET PO PRN (23:00)
[2019-08-17] MEDS ORDERED: methylPREDNISolone SOD SUCC 125 MG/2 ML IVPush SCH (23:00)
[2019-08-17] MEDS ORDERED: ACETAMINOPHEN 325 MG TABLET PO PRN (23:00)
[2019-08-17] MEDS ORDERED: PROMETHAZINE 25 MG/ML, 1ML IM PRN (23:00)
[2019-08-17] MEDS ORDERED: HEPARIN 5,000 UNITS/ML, 1ML SQ SCH (23:00)
[2019-08-17] MEDS ORDERED: DOCUSATE 100 MG CAPSULE PO PRN (23:00)
[2019-08-17] MEDS ORDERED: ONDANSETRON 2MG/ML, 2ML IVPush PRN (23:00)
[2019-08-17] MEDS ORDERED: ONDANSETRON ODT 4 MG PO PRN (23:00)
[2019-08-17] MEDS ORDERED: methylPREDNISolone SOD SUCC 125 MG/2 ML ONE (23:02)
[2019-08-17 23:20] LABS: FREE T4 (FREE THYROXINE) 1.02 ng/dL (0.76-1.46)
[2019-08-18] MEDS: ALBUTEROL/IPRATROPIUM 2.5MG/0.5MG, 3 ML INLINE SCH ×6 (02:25→23:00)
[2019-08-18] MEDS: PROPOFOL 100 ML IV PRN ×6 (02:51→23:33)
[2019-08-18 03:13] LABS: BASOPHILS % (AUTO) 0 % (0-1); EOSINOPHILS # (AUTO) 0.06 x10^3/uL (0-0.4); EOSINOPHILS % (AUTO) 1 % (1-7); LYMPHOCYTES # (AUTO) 0.45 x10^3/uL (1-3.4); LYMPHOCYTES % (AUTO) 5 % (22-44); MD NO; MEAN CORPUSCULAR HEMOGLOBIN 29.8 pg (27.5-34.5); MEAN CORPUSCULAR HGB CONC 32.3 g/dL (33.2-36.2); MEAN CORPUSCULAR VOLUME 92.4 fL (81-97); MEAN PLATELET VOLUME 10.3 fL (7.4-10.4); MONOCYTES # (AUTO) 0.04 x10^3/uL (0.2-0.8); MONOCYTES % (AUTO) 0 % (2-9); NEUTROPHILS # (AUTO) 7.93 x10^3/uL (1.8-6.8); NEUTROPHILS % (AUTO) 94 % (42-75); PLATELET COUNT 166 x10^3/uL (130-400); RED BLOOD COUNT 3.39 x10^6/uL (4.38-5.82)
[2019-08-18 03:24] LABS: ALANINE AMINOTRANSFERASE 53 U/L (12-78); ALBUMIN 2.9 g/dL (3.4-5.0); ANION GAP 10 mmol/L (5-15); CALCIUM 8.4 mg/dL (8.5-10.1); CHLORIDE 96 mmol/L (98-107); CREATININE 6.64 mg/dL (0.7-1.3)
[2019-08-18 03:27] LABS: ALKALINE PHOSPHATASE 161 U/L (45-117); BILIRUBIN,TOTAL 0.4 mg/dL (0.2-1.0); CHOL/HDL RATIO 5.1; CHOLESTEROL, TOTAL 107 mg/dL (140-239); HDL CHOL % 20 % (26-37); HDL CHOLESTEROL (DIRECT) 21 mg/dL (40-60); LDL CHOLESTEROL,CALCULATED 39 mg/dL (54-169); LDL/HDL RATIO 1.9 (0.5-3.0); TOTAL PROTEIN 7.1 g/dL (6.4-8.2); TRIGLYCERIDES 235 mg/dL (50-200); VLDL CHOLESTEROL 47 mg/dL (0-25)
[2019-08-18] MEDS: INSULIN LISPRO 100 UNITS/ML, PEN SQ-INSULIN SCH ×4 (03:48→20:15)
[2019-08-18 04:03] VITALS: BP 114/47
[2019-08-18] MEDS: HEPARIN 5,000 UNITS/ML, 1ML SQ SCH ×3 (04:58→20:17)
[2019-08-18] MEDS: methylPREDNISolone SOD SUCC 40 MG/ML IVPush SCH ×3 (04:58→20:12)
[2019-08-18] MEDS: BUDESONIDE 0.5 MG/2 ML INHA INH SCH ×2 (06:17→20:47)
[2019-08-18] MEDS ORDERED: INSULIN LISPRO 100 UNITS/ML, PEN SQ-INSULIN SCH ×2 (07:00)
[2019-08-18] MEDS ORDERED: ASPIRIN 81 MG TABLET CHEW ONE (08:35)
[2019-08-18] MEDS: SEVELAMER CARBONATE 800MG TAB PO SCH (08:37)
[2019-08-18] MEDS: PANTOPRAZOLE 40 MG IV IV SCH (08:37)
[2019-08-18] MEDS: SODIUM CHLORIDE FLUSH 10ML SYR IVF SCH ×2 (08:37→20:16)
[2019-08-18] MEDS: AZITHROMYCIN 500 MG in SODIUM CHLORIDE 0.9% 250 ML IV SCH ×2 (08:37→13:08)
[2019-08-18] MEDS: ASPIRIN 81 MG TABLET CHEW PO SCH (08:54)
[2019-08-18] MEDS ORDERED: FAMOTIDINE 20 MG/2 ML IVPush SCH (09:00)
[2019-08-18] MEDS ORDERED: ASPIRIN 81 MG TABLET EC PO SCH (09:00)
[2019-08-18] MEDS: ATORVASTATIN 80 MG TABLET PO SCH (20:12)
[2019-08-19] MEDS: methylPREDNISolone SOD SUCC 40 MG/ML IVPush SCH ×4 (01:03→19:55)
[2019-08-19] MEDS: PROPOFOL 100 ML IV PRN ×2 (02:47→06:35)
[2019-08-19] MEDS: ALBUTEROL/IPRATROPIUM 2.5MG/0.5MG, 3 ML INLINE SCH (02:50)
[2019-08-19] MEDS: INSULIN LISPRO 100 UNITS/ML, PEN SQ-INSULIN SCH ×4 (02:56→23:34)
[2019-08-19 04:00] VITALS: BP 109/54
[2019-08-19] MEDS: HEPARIN 5,000 UNITS/ML, 1ML SQ SCH ×3 (05:46→21:52)
[2019-08-19 06:31] LABS: BASOPHILS % (AUTO) 0 % (0-1); EOSINOPHILS # (AUTO) 0.01 x10^3/uL (0-0.4); EOSINOPHILS % (AUTO) 0 % (1-7); LYMPHOCYTES # (AUTO) 0.39 x10^3/uL (1-3.4); LYMPHOCYTES % (AUTO) 4 % (22-44); MD NO; MEAN CORPUSCULAR HEMOGLOBIN 30.2 pg (27.5-34.5); MEAN CORPUSCULAR HGB CONC 32.8 g/dL (33.2-36.2); MEAN CORPUSCULAR VOLUME 92.1 fL (81-97); MEAN PLATELET VOLUME 11.2 fL (7.4-10.4); MONOCYTES # (AUTO) 0.32 x10^3/uL (0.2-0.8); MONOCYTES % (AUTO) 3 % (2-9); NEUTROPHILS # (AUTO) 9.89 x10^3/uL (1.8-6.8); NEUTROPHILS % (AUTO) 93 % (42-75); PLATELET COUNT 179 x10^3/uL (130-400); RED BLOOD COUNT 3.37 x10^6/uL (4.38-5.82); RED CELL DISTRIBUTION WIDTH 16.8 % (9.4-14.8)
[2019-08-19 06:35] LABS: ANION GAP 9 mmol/L (5-15); CALCIUM 8.5 mg/dL (8.5-10.1); CHLORIDE 93 mmol/L (98-107); CREATININE 5.53 mg/dL (0.7-1.3)
[2019-08-19] MEDS: BUDESONIDE 0.5 MG/2 ML INHA INH SCH ×2 (09:00→19:10)
[2019-08-19] MEDS: LOSARTAN 50MG TABLET PO SCH (09:50)
[2019-08-19] MEDS: SEVELAMER CARBONATE 800MG TAB PO SCH (09:50)
[2019-08-19] MEDS: PANTOPRAZOLE 40 MG IV IV SCH (09:50)
[2019-08-19] MEDS: ASPIRIN 81 MG TABLET CHEW PO SCH (09:50)
[2019-08-19] MEDS: hydrALAzine 20 MG/ML, 1ML IVPush PRN (09:50)
[2019-08-19] MEDS: SODIUM CHLORIDE FLUSH 10ML SYR IVF SCH ×2 (09:50→21:52)
[2019-08-19] MEDS: CARVEDILOL 3.125 MG TABLET PO SCH ×2 (09:55→18:32)
[2019-08-19] MEDS: OXYcodone IR 5MG TABLET PO PRN (09:55)
[2019-08-19] MEDS: DEXMEDETOMIDINE 1,000 MCG in SODIUM CHLORIDE 0.9% 240 ML IV PRN ×2 (10:50→18:39)
[2019-08-19] MEDS: AZITHROMYCIN 500 MG in SODIUM CHLORIDE 0.9% 250 ML IV SCH (13:21)
[2019-08-19] MEDS: ALBUTEROL/IPRATROPIUM 2.5MG/0.5MG, 3 ML NPPB SCH (19:10)
[2019-08-19] MEDS: morphine SULFATE 10 MG/ML, 1ML IVPush PRN (19:55)
[2019-08-19] MEDS: ATORVASTATIN 80 MG TABLET PO SCH ×2 (21:00→21:52)
[2019-08-20] MEDS: DEXMEDETOMIDINE 1,000 MCG in SODIUM CHLORIDE 0.9% 240 ML IV PRN (01:30)
[2019-08-20] MEDS: methylPREDNISolone SOD SUCC 40 MG/ML IVPush SCH ×4 (01:53→20:40)
[2019-08-20] MEDS: morphine SULFATE 10 MG/ML, 1ML IVPush PRN (01:54)
[2019-08-20] MEDS: ALBUTEROL/IPRATROPIUM 2.5MG/0.5MG, 3 ML NPPB SCH ×4 (02:18→19:43)
[2019-08-20 04:00] VITALS: BP 144/60
[2019-08-20 05:09] LABS: BASOPHILS # (AUTO) 0.01 x10^3/uL (0-0.1); BASOPHILS % (AUTO) 0 % (0-1); EOSINOPHILS % (AUTO) 0 % (1-7); LYMPHOCYTES # (AUTO) 0.35 x10^3/uL (1-3.4); LYMPHOCYTES % (AUTO) 3 % (22-44); MD NO; MEAN CORPUSCULAR HGB CONC 32.5 g/dL (33.2-36.2); MEAN CORPUSCULAR VOLUME 92.3 fL (81-97); MEAN PLATELET VOLUME 10.7 fL (7.4-10.4); MONOCYTES # (AUTO) 0.36 x10^3/uL (0.2-0.8); MONOCYTES % (AUTO) 3 % (2-9); NEUTROPHILS # (AUTO) 11.26 x10^3/uL (1.8-6.8); NEUTROPHILS % (AUTO) 94 % (42-75); PLATELET COUNT 173 x10^3/uL (130-400); RED BLOOD COUNT 3.83 x10^6/uL (4.38-5.82); RED CELL DISTRIBUTION WIDTH 16.5 % (9.4-14.8)
[2019-08-20 05:25] LABS: ANION GAP 8 mmol/L (5-15); CALCIUM 8.6 mg/dL (8.5-10.1); CHLORIDE 97 mmol/L (98-107); CREATININE 4.79 mg/dL (0.7-1.3); TRIGLYCERIDES 216 mg/dL (50-200)
[2019-08-20] MEDS: INSULIN LISPRO 100 UNITS/ML, PEN SQ-INSULIN SCH ×4 (05:55→20:47)
[2019-08-20] MEDS: HEPARIN 5,000 UNITS/ML, 1ML SQ SCH ×3 (05:55→20:40)
[2019-08-20] MEDS: CARVEDILOL 3.125 MG TABLET PO SCH ×2 (08:01→17:28)
[2019-08-20] MEDS: BUDESONIDE 0.5 MG/2 ML INHA INH SCH ×2 (09:12→19:43)
[2019-08-20] MEDS: SEVELAMER CARBONATE 800MG TAB PO SCH (10:24)
[2019-08-20] MEDS: ASPIRIN 81 MG TABLET CHEW PO SCH (10:24)
[2019-08-20] MEDS: LOSARTAN 50MG TABLET PO SCH (10:25)
[2019-08-20] MEDS: SODIUM CHLORIDE FLUSH 10ML SYR IVF SCH ×2 (10:25→20:41)
[2019-08-20] MEDS: PANTOPRAZOLE 40 MG IV IV SCH (10:25)
[2019-08-20] MEDS: hydrALAzine 20 MG/ML, 1ML IVPush PRN (11:40)
[2019-08-20] MEDS ORDERED: MORPHINE SULFATE 4 MG/ML, 1ML ONE (13:59)
[2019-08-20] MEDS ORDERED: MORPHINE SULFATE 4 MG/ML, 1ML IVPush PRN (14:09)
[2019-08-20] MEDS: INSULIN GLARGINE 100 UNITS/ML, PEN SQ-INSULIN SCH ×2 (14:16→20:46)
[2019-08-20] MEDS: AZITHROMYCIN 500 MG in SODIUM CHLORIDE 0.9% 250 ML IV SCH (14:18)
[2019-08-20] MEDS: ATORVASTATIN 80 MG TABLET PO SCH (20:40)
[2019-08-21] MEDS: ALBUTEROL/IPRATROPIUM 2.5MG/0.5MG, 3 ML NPPB SCH ×4 (02:50→20:44)
[2019-08-21] MEDS: methylPREDNISolone SOD SUCC 40 MG/ML IVPush SCH ×4 (02:54→20:15)
[2019-08-21] MEDS: INSULIN LISPRO 100 UNITS/ML, PEN SQ-INSULIN SCH ×4 (02:58→20:06)
[2019-08-21 04:00] VITALS: BP 157/60
[2019-08-21 04:51] LABS: BASOPHILS % (AUTO) 0 % (0-1); EOSINOPHILS % (AUTO) 0 % (1-7); LYMPHOCYTES # (AUTO) 0.36 x10^3/uL (1-3.4); LYMPHOCYTES % (AUTO) 3 % (22-44); MD NO; MEAN CORPUSCULAR HEMOGLOBIN 29.8 pg (27.5-34.5); MEAN CORPUSCULAR HGB CONC 32.1 g/dL (33.2-36.2); MEAN CORPUSCULAR VOLUME 92.8 fL (81-97); MEAN PLATELET VOLUME 9.9 fL (7.4-10.4); MONOCYTES # (AUTO) 0.45 x10^3/uL (0.2-0.8); MONOCYTES % (AUTO) 4 % (2-9); NEUTROPHILS % (AUTO) 94 % (42-75); PLATELET COUNT 192 x10^3/uL (130-400); RED BLOOD COUNT 3.97 x10^6/uL (4.38-5.82); RED CELL DISTRIBUTION WIDTH 16.7 % (9.4-14.8)
[2019-08-21 05:04] LABS: ANION GAP 9 mmol/L (5-15); CALCIUM 8.8 mg/dL (8.5-10.1); CHLORIDE 97 mmol/L (98-107); CREATININE 6.04 mg/dL (0.7-1.3)
[2019-08-21] MEDS: CARVEDILOL 3.125 MG TABLET PO SCH ×2 (06:17→19:13)
[2019-08-21] MEDS: HEPARIN 5,000 UNITS/ML, 1ML SQ SCH ×3 (06:17→20:15)
[2019-08-21] MEDS: BUDESONIDE 0.5 MG/2 ML INHA INH SCH ×2 (09:00→20:45)
[2019-08-21] MEDS: hydrALAzine 20 MG/ML, 1ML IVPush PRN (09:17)
[2019-08-21] MEDS: LOSARTAN 50MG TABLET PO SCH (09:50)
[2019-08-21] MEDS: SEVELAMER CARBONATE 800MG TAB PO SCH (09:50)
[2019-08-21] MEDS: PANTOPRAZOLE 40 MG IV IV SCH (09:50)
[2019-08-21] MEDS: ASPIRIN 81 MG TABLET CHEW PO SCH (09:51)
[2019-08-21] MEDS: SODIUM CHLORIDE FLUSH 10ML SYR IVF SCH ×2 (09:54→20:18)
[2019-08-21] MEDS: INSULIN GLARGINE 100 UNITS/ML, PEN SQ-INSULIN SCH ×2 (10:02→20:05)
[2019-08-21] MEDS: AZITHROMYCIN 500 MG in SODIUM CHLORIDE 0.9% 250 ML IV SCH (13:17)
[2019-08-21 19:10] VITALS: BP 172/84
[2019-08-21] MEDS: ATORVASTATIN 80 MG TABLET PO SCH (20:15)
[2019-08-21] MEDS: OXYcodone IR 5MG TABLET PO PRN (20:16)
[2019-08-21 20:42] VITALS: BP 161/70
[2019-08-22 01:21] VITALS: BP 173/60
[2019-08-22] MEDS: methylPREDNISolone SOD SUCC 40 MG/ML IVPush SCH (01:39)
[2019-08-22] MEDS: hydrALAzine 20 MG/ML, 1ML IVPush PRN (01:39)
[2019-08-22] MEDS: ALBUTEROL/IPRATROPIUM 2.5MG/0.5MG, 3 ML NPPB SCH ×4 (03:00→21:13)
[2019-08-22 04:00] VITALS: BP 140/80
[2019-08-22] MEDS: CARVEDILOL 3.125 MG TABLET PO SCH ×2 (05:20→18:07)
[2019-08-22] MEDS: HEPARIN 5,000 UNITS/ML, 1ML SQ SCH ×3 (05:20→20:43)
[2019-08-22 06:18] LABS: BASOPHILS % (AUTO) 0 % (0-1); EOSINOPHILS % (AUTO) 0 % (1-7); LYMPHOCYTES % (AUTO) 3 % (22-44); MD NO; MEAN CORPUSCULAR HEMOGLOBIN 29.6 pg (27.5-34.5); MEAN CORPUSCULAR HGB CONC 32.5 g/dL (33.2-36.2); MEAN CORPUSCULAR VOLUME 90.9 fL (81-97); MEAN PLATELET VOLUME 10.1 fL (7.4-10.4); MONOCYTES % (AUTO) 2 % (2-9); NEUTROPHILS # (AUTO) 11.55 x10^3/uL (1.8-6.8); NEUTROPHILS % (AUTO) 94 % (42-75); PLATELET COUNT 214 x10^3/uL (130-400); RED BLOOD COUNT 4.26 x10^6/uL (4.38-5.82); RED CELL DISTRIBUTION WIDTH 16.4 % (9.4-14.8)
[2019-08-22 06:28] LABS: ANION GAP 11 mmol/L (5-15); CHLORIDE 97 mmol/L (98-107); CREATININE 5.14 mg/dL (0.7-1.3)
[2019-08-22] MEDS: BUDESONIDE 0.5 MG/2 ML INHA INH SCH ×2 (07:20→21:13)
[2019-08-22 08:10] VITALS: BP 149/62
[2019-08-22] MEDS: PANTOPROZOLE 40MG TABLET PO SCH (08:15)
[2019-08-22] MEDS: SEVELAMER CARBONATE 800MG TAB PO SCH (08:15)
[2019-08-22] MEDS: ASPIRIN 81 MG TABLET CHEW PO SCH (08:15)
[2019-08-22] MEDS: LOSARTAN 50MG TABLET PO SCH (08:15)
[2019-08-22] MEDS: INSULIN LISPRO 100 UNITS/ML, PEN SQ-INSULIN SCH ×4 (08:18→20:26)
[2019-08-22] MEDS: INSULIN GLARGINE 100 UNITS/ML, PEN SQ-INSULIN SCH ×2 (08:18→20:44)
[2019-08-22] MEDS: SODIUM CHLORIDE FLUSH 10ML SYR IVF SCH ×2 (09:00→20:44)
[2019-08-22] MEDS ORDERED: AZITHROMYCIN 500 MG in SODIUM CHLORIDE 0.9% 250 ML IV SCH (13:00)
[2019-08-22 14:12] VITALS: BP 146/65
[2019-08-22 18:41] VITALS: BP 158/63
[2019-08-22] MEDS: ATORVASTATIN 80 MG TABLET PO SCH (20:43)
[2019-08-23 00:20] VITALS: BP 174/70
[2019-08-23] MEDS: hydrALAzine 20 MG/ML, 1ML IVPush PRN (01:15)
[2019-08-23 01:47] VITALS: BP 137/65
[2019-08-23] MEDS: ALBUTEROL/IPRATROPIUM 2.5MG/0.5MG, 3 ML NPPB SCH ×2 (03:00→07:00)
[2019-08-23] MEDS: CARVEDILOL 3.125 MG TABLET PO SCH (05:01)
[2019-08-23] MEDS: PANTOPROZOLE 40MG TABLET PO SCH (05:01)
[2019-08-23] MEDS: HEPARIN 5,000 UNITS/ML, 1ML SQ SCH ×2 (05:01→14:34)
[2019-08-23 05:50] LABS: BASOPHILS % (AUTO) 0 % (0-1); EOSINOPHILS # (AUTO) 0.05 x10^3/uL (0-0.4); EOSINOPHILS % (AUTO) 0 % (1-7); LYMPHOCYTES # (AUTO) 0.77 x10^3/uL (1-3.4); LYMPHOCYTES % (AUTO) 6 % (22-44); MD NO; MEAN CORPUSCULAR HEMOGLOBIN 29.5 pg (27.5-34.5); MEAN CORPUSCULAR HGB CONC 32.5 g/dL (33.2-36.2); MEAN CORPUSCULAR VOLUME 90.8 fL (81-97); MEAN PLATELET VOLUME 10.2 fL (7.4-10.4); MONOCYTES # (AUTO) 1.09 x10^3/uL (0.2-0.8); MONOCYTES % (AUTO) 9 % (2-9); NEUTROPHILS # (AUTO) 11.02 x10^3/uL (1.8-6.8); NEUTROPHILS % (AUTO) 85 % (42-75); PLATELET COUNT 222 x10^3/uL (130-400); RED BLOOD COUNT 4.25 x10^6/uL (4.38-5.82); RED CELL DISTRIBUTION WIDTH 16.4 % (9.4-14.8)
[2019-08-23 05:56] LABS: ANION GAP 13 mmol/L (5-15); CALCIUM 8.8 mg/dL (8.5-10.1); CHLORIDE 100 mmol/L (98-107); CREATININE 6.43 mg/dL (0.7-1.3)
[2019-08-23] MEDS: BUDESONIDE 0.5 MG/2 ML INHA INH SCH (07:00)
[2019-08-23 07:18] VITALS: BP 133/62
[2019-08-23] MEDS: INSULIN LISPRO 100 UNITS/ML, PEN SQ-INSULIN SCH ×2 (08:08→14:33)
[2019-08-23] MEDS ORDERED: REGADENOSON 0.4 MG/5 ML SYRINGE ONE (08:22)
[2019-08-23] MEDS: SODIUM CHLORIDE FLUSH 10ML SYR IVF SCH (11:25)
[2019-08-23] MEDS: INSULIN GLARGINE 100 UNITS/ML, PEN SQ-INSULIN SCH (11:25)
[2019-08-23] MEDS: ASPIRIN 81 MG TABLET CHEW PO SCH (11:25)
[2019-08-23] MEDS: SEVELAMER CARBONATE 800MG TAB PO SCH (14:33)
[2019-08-23] MEDS: LOSARTAN 50MG TABLET PO SCH (14:33)
[2019-09-05] MEDS ORDERED: INSU100V13 SQ-INSULIN (16:54)
[2019-09-09] MEDS ORDERED: SEVE800T8 PO (15:08)
[2019-09-09] MEDS ORDERED: LEVO500T8 PO (15:08)
== END 2019-08-23 16:00 | disposition home health service (06) | DRG 208 ==
LOC: ED 19:44 → EDIP 20:58 → ICU 21:43 → CCU 08-18 13:44 → 4WST 08-21 14:33 → DCLOUNGE 08-23 15:55
PROVIDERS: ADMIT Internal Medicine; ATTEND Family Medicine
PROC: 0BH17EZ Insertion of Endotracheal Airway into Trachea, Via Natural or Artificial Opening (ICD-10-PCS; principal; 2019-08-17)
PROC: 5A1945Z Respiratory Ventilation, 24-96 Consecutive Hours (ICD-10-PCS; 2019-08-17)
PROC: 5A09357 Assistance with Respiratory Ventilation, Less than 24 Consecutive Hours, Continuous Positive Airway Pressure (ICD-10-PCS; 2019-08-17)
PROC: 5A1D70Z Performance of Urinary Filtration, Intermittent, Less than 6 Hours Per Day (ICD-10-PCS; 2019-08-18)
PROC: 5A1D70Z Performance of Urinary Filtration, Intermittent, Less than 6 Hours Per Day (ICD-10-PCS; 2019-08-19)
PROC: 5A1D70Z Performance of Urinary Filtration, Intermittent, Less than 6 Hours Per Day (ICD-10-PCS; 2019-08-21)
PROC: 5A1D70Z Performance of Urinary Filtration, Intermittent, Less than 6 Hours Per Day (ICD-10-PCS; 2019-08-23)
DX: J96.21 Acute and chronic respiratory failure with hypoxia (principal); I21.A1 Myocardial infarction type 2; I50.33 Acute on chronic diastolic (congestive) heart failure; N18.6 End stage renal disease; G93.41 Metabolic encephalopathy; I13.2 Hypertensive heart and chronic kidney disease with heart failure and with stage 5 chronic kidney disease, or end stage renal disease; J44.1 Chronic obstructive pulmonary disease with (acute) exacerbation; D68.69 Other thrombophilia; I48.20 Chronic atrial fibrillation, unspecified; Z99.11 Dependence on respirator [ventilator] status; J96.22 Acute and chronic respiratory failure with hypercapnia; M19.90 Unspecified osteoarthritis, unspecified site; D63.1 Anemia in chronic kidney disease; E11.22 Type 2 diabetes mellitus with diabetic chronic kidney disease; E11.40 Type 2 diabetes mellitus with diabetic neuropathy, unspecified; E66.9 Obesity, unspecified; E78.5 Hyperlipidemia, unspecified; G47.33 Obstructive sleep apnea (adult) (pediatric); I25.10 Atherosclerotic heart disease of native coronary artery without angina pectoris; I25.5 Ischemic cardiomyopathy; I27.20 Pulmonary hypertension, unspecified; Z99.81 Dependence on supplemental oxygen; Z99.2 Dependence on renal dialysis; Z68.37 Body mass index [BMI] 37.0-37.9, adult; Z96.641 Presence of right artificial hip joint; Z95.5 Presence of coronary angioplasty implant and graft; Z87.891 Personal history of nicotine dependence; Z86.73 Personal history of transient ischemic attack (TIA), and cerebral infarction without residual deficits; Z83.3 Family history of diabetes mellitus; Z79.4 Long term (current) use of insulin; Z79.01 Long term (current) use of anticoagulants; Z90.49 Acquired absence of other specified parts of digestive tract
CPT/HCPCS: 31500; 36415; 36600; 71045; 78452; 80048; 80053; 80061; 82040; 82533; 82803; 82962; 83036; 83605; 83735; 83880; 84100; 84439; 84443; 84478; 84484; 85025; 85610; 85730; 87040; 87070; 87081; 87205; 90935; 93005; 93017; 93308; 94002; 94003; 94640; 96374; 96375; G0378; J0456; J1644; J2020; J2250; J2543; J2704; J2785; J3370; J7620; J7626; A9502; C9113; J0330; J0360; J1815; J2270; J2920; J2930; J7040; J7050

== ENCOUNTER 2019-08-29 07:02 | Inpatient (IN) | payer MEDICAID, MEDICARE ==
[~2019-08-29] VITALS: Ht 167.6 cm; Wt 104.9 kg
[~2019-08-29 07:02] MED LIST changes: -ETOMIDATE 20 MG/10 ML ONE; -MIDAZOLAM 1 MG/ML, 5ML ONE; -PROPOFOL 100 ML IV ONE; -SUCCINYLCHOLINE 20 MG/ML, 10ML ONE
--- NOTE | 2019-08-29 07:22 | NUR ---
LATE NOTE ENTRY DUE TO PT CARE FOR 654: Pt coming from home today by EMS for c/o sob. Pt had recent hospitalization on ", with admission to ICU and intubation," per EMS. Pt is sitting tripod on [facility] with shallow labored respirations with even chest rise and fall. Pt c/o sudden onsent of sternal chest pain upon arrival. EKG obtained. Pt connected to NIBP cuff, continous pulse ox monitor, and laboratory monitor. Call light within reach. EDPA at bedside. No needs expressed at this time.
[2019-08-29] MEDS ORDERED: ALBUTEROL/IPRATROPIUM 2.5MG/0.5MG, 3 ML ONE (07:55)
[2019-08-29] MEDS ORDERED: SODIUM CHLORIDE FLUSH 10ML SYR IVF ONE (08:00)
[2019-08-29] MEDS ORDERED: ONDANSETRON 2MG/ML, 2ML IVPush ONE (08:00)
[2019-08-29] MEDS ORDERED: NITROGLYCERIN OINT 2%, 1GM TP ONE ×2 (08:00→08:42)
[2019-08-29] MEDS ORDERED: NITROGLYCERIN SINGLE TAB 0.4 MG SL PRN (08:00)
[2019-08-29] MEDS ORDERED: ASPIRIN 81 MG TABLET CHEW PO ONE ×2 (08:00→09:30)
[2019-08-29] MEDS: ALBUTEROL/IPRATROPIUM 2.5MG/0.5MG, 3 ML NPPB SCH (08:05)
[2019-08-29 08:09] LABS: BASOPHILS # (AUTO) 0.05 x10^3/uL (0-0.1); BASOPHILS % (AUTO) 1 % (0-1); EOSINOPHILS # (AUTO) 0.27 x10^3/uL (0-0.4); EOSINOPHILS % (AUTO) 3 % (1-7); LYMPHOCYTES # (AUTO) 0.66 x10^3/uL (1-3.4); LYMPHOCYTES % (AUTO) 7 % (22-44); MD NO; MEAN CORPUSCULAR HEMOGLOBIN 29.7 pg (27.5-34.5); MEAN CORPUSCULAR HGB CONC 32.9 g/dL (33.2-36.2); MEAN CORPUSCULAR VOLUME 90.2 fL (81-97); MEAN PLATELET VOLUME 9.5 fL (7.4-10.4); MONOCYTES # (AUTO) 0.72 x10^3/uL (0.2-0.8); MONOCYTES % (AUTO) 7 % (2-9); NEUTROPHILS # (AUTO) 8.13 x10^3/uL (1.8-6.8); NEUTROPHILS % (AUTO) 83 % (42-75); PLATELET COUNT 196 x10^3/uL (130-400); RED BLOOD COUNT 3.63 x10^6/uL (4.38-5.82); RED CELL DISTRIBUTION WIDTH 16.1 % (9.4-14.8)
[2019-08-29 08:14] LABS: INTERNATIONAL NORMALIZED RATIO 0.97 (0.93-1.1); PROTHROMBIN TIME 10.2 Seconds (9.6-11.5)
[2019-08-29 08:17] LABS: ALBUMIN 3.4 g/dL (3.4-5.0); ANION GAP 14 mmol/L (5-15); CALCIUM 8.6 mg/dL (8.5-10.1); CHLORIDE 104 mmol/L (98-107); CREATININE 7.92 mg/dL (0.7-1.3)
[2019-08-29 08:27] LABS: TROPONIN I 0.304 ng/mL (0.000-0.045)
[2019-08-29] MEDS ORDERED: ONDANSETRON 2MG/ML, 2ML ONE (08:42)
[2019-08-29] MEDS ORDERED: ASPIRIN 81 MG TABLET CHEW ONE (08:42)
[2019-08-29] MEDS ORDERED: NITROGLYCERIN SINGLE TAB 0.4 MG SL ONE (08:54)
[2019-08-29] MEDS ORDERED: CARV25TA12 PO (08:59)
--- NOTE | 2019-08-29 09:04 | NUR ---
Pt states relief from chest pain after one SL nitro per EMAR.
[2019-08-29] MEDS ORDERED: LIDOCAINE 1%, 10ML ONE (09:21)
[2019-08-29] MEDS ORDERED: ONDANSETRON 2MG/ML, 2ML IVPush PRN (09:30)
[2019-08-29] MEDS ORDERED: ACETAMINOPHEN 325 MG TABLET PO PRN (09:30)
[2019-08-29] MEDS ORDERED: NITROGLYCERIN 0.4 MG BOTTLE (25 TABS) SL PRN (09:30)
[2019-08-29] MEDS ORDERED: PROMETHAZINE 25 MG/ML, 1ML IM PRN (09:30)
[2019-08-29] MEDS ORDERED: hydrALAzine 20 MG/ML, 1ML IVPush PRN (09:30)
[2019-08-29] MEDS ORDERED: LABETALOL 5MG/ML, 20ML IVPush PRN (09:30)
--- NOTE | 2019-08-29 09:30 | NUR ---
Provided report to GALINA Elaine. All questions answered. Pt ready to transfer to floor from ED.
[2019-08-29 09:44] LABS: TROPONIN I 0.311 ng/mL (0.000-0.045)
[2019-08-29 09:54] VITALS: BP 144/73
[2019-08-29] MEDS: INSULIN LISPRO 100 UNITS/ML, PEN SQ-INSULIN SCH ×3 (11:00→20:53)
[2019-08-29 12:21] VITALS: BP 153/64
[2019-08-29] MEDS: HEPARIN 5,000 UNITS/ML, 1ML SQ SCH ×2 (12:50→20:48)
[2019-08-29] MEDS ORDERED: PREGABALIN 100 MG CAPSULE PO SCH ×2 (13:00→16:00)
[2019-08-29] MEDS ORDERED: ALBUTEROL/IPRATROPIUM 2.5MG/0.5MG, 3 ML NPPB PRN (14:00)
[2019-08-29] MEDS: ISOSORBIDE DINITRATE 10 MG TABLET PO SCH ×2 (16:00→20:49)
[2019-08-29 17:24] LABS: TROPONIN I 0.252 ng/mL (0.000-0.045)
[2019-08-29 19:08] VITALS: BP 151/66
[2019-08-29] MEDS: ATORVASTATIN 80 MG TABLET PO SCH (20:48)
[2019-08-29] MEDS: CARVEDILOL 25 MG TABLET PO SCH (20:49)
[2019-08-29] MEDS: INSULIN GLARGINE 100 UNITS/ML, PEN SQ-INSULIN SCH (20:53)
[2019-08-29 21:38] LABS: TROPONIN I 0.256 ng/mL (0.000-0.045)
[2019-08-30 01:38] VITALS: BP 118/56
[2019-08-30] MEDS: PREGABALIN 75 MG CAPSULE PO SCH ×3 (01:57→21:03)
[2019-08-30 02:00] VITALS: BP 117/60
[2019-08-30] MEDS: ASPIRIN 325 MG TABLET EC PO SCH (05:31)
[2019-08-30] MEDS: HEPARIN 5,000 UNITS/ML, 1ML SQ SCH ×2 (05:31→16:09)
[2019-08-30 06:16] LABS: BASOPHILS # (AUTO) 0.02 x10^3/uL (0-0.1); BASOPHILS % (AUTO) 0 % (0-1); EOSINOPHILS # (AUTO) 0.28 x10^3/uL (0-0.4); EOSINOPHILS % (AUTO) 3 % (1-7); LYMPHOCYTES % (AUTO) 8 % (22-44); MD NO; MEAN CORPUSCULAR HEMOGLOBIN 29.8 pg (27.5-34.5); MEAN CORPUSCULAR VOLUME 93.2 fL (81-97); MEAN PLATELET VOLUME 9.5 fL (7.4-10.4); MONOCYTES # (AUTO) 0.72 x10^3/uL (0.2-0.8); MONOCYTES % (AUTO) 8 % (2-9); NEUTROPHILS # (AUTO) 7.75 x10^3/uL (1.8-6.8); NEUTROPHILS % (AUTO) 81 % (42-75); PLATELET COUNT 198 x10^3/uL (130-400); RED BLOOD COUNT 3.53 x10^6/uL (4.38-5.82); RED CELL DISTRIBUTION WIDTH 16.2 % (9.4-14.8)
[2019-08-30 06:24] LABS: ANION GAP 6 mmol/L (5-15); CALCIUM 8.3 mg/dL (8.5-10.1); CHLORIDE 103 mmol/L (98-107)
[2019-08-30 06:33] LABS: % IRON SATURATION 17 % (20-55); ALANINE AMINOTRANSFERASE 46 U/L (12-78); ALKALINE PHOSPHATASE 105 U/L (45-117); BILIRUBIN,TOTAL 0.6 mg/dL (0.2-1.0); CREATININE 4.39 mg/dL (0.7-1.3); IRON LEVEL 22 mcg/dL (65-175); TOTAL IRON BINDING CAPACITY 132 mcg/dL (250-450); TOTAL PROTEIN 6.6 g/dL (6.4-8.2)
[2019-08-30 06:34] VITALS: BP 135/75
[2019-08-30] MEDS: INSULIN LISPRO 100 UNITS/ML, PEN SQ-INSULIN SCH ×4 (07:00→21:04)
[2019-08-30] MEDS: INSULIN GLARGINE 100 UNITS/ML, PEN SQ-INSULIN SCH ×2 (08:17→21:05)
[2019-08-30] MEDS: CARVEDILOL 25 MG TABLET PO SCH ×2 (11:36→21:03)
[2019-08-30] MEDS: ISOSORBIDE DINITRATE 10 MG TABLET PO SCH ×3 (11:37→21:03)
[2019-08-30 12:00] VITALS: BP 144/60
[2019-08-30] MEDS: PANTOPROZOLE 40MG TABLET PO SCH (15:15)
[2019-08-30 16:11] VITALS: BP 126/55
[2019-08-30] MEDS: LOSARTAN 50MG TABLET PO SCH (16:11)
[2019-08-30 18:51] VITALS: BP 138/59
[2019-08-30] MEDS: ATORVASTATIN 80 MG TABLET PO SCH (21:03)
[2019-08-31 01:03] VITALS: BP 128/55
[2019-08-31] MEDS: PANTOPROZOLE 40MG TABLET PO SCH (01:36)
[2019-08-31] MEDS: HEPARIN 5,000 UNITS/ML, 1ML SQ SCH ×3 (01:37→15:18)
[2019-08-31] MEDS ORDERED: DEXTROSE 4 GM TAB.CHEW ONE (01:56)
[2019-08-31] MEDS: ASPIRIN 325 MG TABLET EC PO SCH (01:59)
[2019-08-31] MEDS ORDERED: GLUCAGON 1 MG IM PRN (02:00)
[2019-08-31] MEDS ORDERED: DEXTROSE 4 GM TAB.CHEW PO PRN (02:00)
[2019-08-31] MEDS ORDERED: DEXTROSE 50%, 50ML SYRINGE IVPush PRN (02:00)
[2019-08-31 07:45] VITALS: BP 137/58
[2019-08-31] MEDS: INSULIN LISPRO 100 UNITS/ML, PEN SQ-INSULIN SCH ×2 (08:03→11:00)
[2019-08-31] MEDS: CARVEDILOL 25 MG TABLET PO SCH (08:48)
[2019-08-31] MEDS: LOSARTAN 50MG TABLET PO SCH (08:48)
[2019-08-31] MEDS: ISOSORBIDE DINITRATE 10 MG TABLET PO SCH (08:48)
[2019-08-31] MEDS: INSULIN GLARGINE 100 UNITS/ML, PEN SQ-INSULIN SCH (08:59)
[2019-08-31] MEDS: PREGABALIN 75 MG CAPSULE PO SCH (09:00)
[2019-08-31] MEDS ORDERED: SODIUM CHLORIDE FLUSH 10ML SYR IVF SCH (09:00)
[2019-08-31 12:40] VITALS: BP 123/66
[2019-08-31] MEDS ORDERED: CALCITRIOL 0.25 MCG CAPSULE PO SCH (18:00)
== END 2019-08-31 16:38 | disposition home health service (06) | DRG 291 ==
LOC: MERGE 07:02 → ED 08:32 → EDIP 08:48 → 4WST 09:51
PROVIDERS: ADMIT Internal Medicine; ATTEND Internal Medicine
PROC: 0W993ZZ Drainage of Right Pleural Cavity, Percutaneous Approach (ICD-10-PCS; principal; 2019-08-29)
PROC: 5A1D70Z Performance of Urinary Filtration, Intermittent, Less than 6 Hours Per Day (ICD-10-PCS; 2019-08-29)
PROC: 5A1D70Z Performance of Urinary Filtration, Intermittent, Less than 6 Hours Per Day (ICD-10-PCS; 2019-08-30)
DX: I13.2 Hypertensive heart and chronic kidney disease with heart failure and with stage 5 chronic kidney disease, or end stage renal disease (principal); I50.33 Acute on chronic diastolic (congestive) heart failure; N18.6 End stage renal disease; J96.11 Chronic respiratory failure with hypoxia; J91.8 Pleural effusion in other conditions classified elsewhere; I27.20 Pulmonary hypertension, unspecified; I48.91 Unspecified atrial fibrillation; D64.9 Anemia, unspecified; E11.22 Type 2 diabetes mellitus with diabetic chronic kidney disease; E66.01 Morbid (severe) obesity due to excess calories; E78.5 Hyperlipidemia, unspecified; I25.10 Atherosclerotic heart disease of native coronary artery without angina pectoris; I25.2 Old myocardial infarction; J44.9 Chronic obstructive pulmonary disease, unspecified; E66.9 Obesity, unspecified; K21.9 Gastro-esophageal reflux disease without esophagitis; N25.0 Renal osteodystrophy; Z68.37 Body mass index [BMI] 37.0-37.9, adult; Z79.4 Long term (current) use of insulin; Z83.3 Family history of diabetes mellitus; Z86.718 Personal history of other venous thrombosis and embolism; Z86.73 Personal history of transient ischemic attack (TIA), and cerebral infarction without residual deficits; Z87.01 Personal history of pneumonia (recurrent); Z87.891 Personal history of nicotine dependence; Z91.19 Patient's noncompliance with other medical treatment and regimen; Z95.5 Presence of coronary angioplasty implant and graft; Z99.2 Dependence on renal dialysis; Z99.81 Dependence on supplemental oxygen; Z90.49 Acquired absence of other specified parts of digestive tract
CPT/HCPCS: 32555; 36415; 71045; 80048; 80053; 82040; 82042; 82150; 82306; 82728; 82945; 82962; 83540; 83550; 83605; 83615; 83735; 83880; 83970; 83986; 84100; 84145; 84157; 84443; 84484; 84550; 85025; 85610; 87040; 87070; 87205; 89051; 90935; 93005; 94640; G0378; J1644; J2405; J7620; J1815